=== PATIENT | male | born 1955 | race Caucasian/White ===

== ENCOUNTER → 2018-01-22 | Outpatient (CLI) | payer BC ==
--- NOTE | 2018-01-22 16:50 | Diagnostic Imaging Report ---
PROCEDURE: US carotid duplex, bilateral. TECHNIQUE: Multiple real-time grayscale images were obtained over the carotid arteries in various projections, bilaterally. Additional duplex Doppler and color Doppler images were also obtained. INDICATION: Carotid bruit. COMPARISON: None available. FINDINGS: Right carotid circulation: The right common carotid artery is normal in caliber, and there is no significant stenosis. Peak systolic velocity in the right common carotid artery is 81 cm/sec. There is calcified and noncalcified atherosclerotic plaque in the carotid bulb and proximal internal carotid artery, which results in up to 50% luminal narrowing by carr scale imaging. The peak systolic velocity in the proximal internal carotid artery is 134 cm/sec. Proximal aspect of the external carotid artery is patent with expected high resistance waveforms, and peak systolic velocity of 226 cm/sec. Left carotid circulation: The left common carotid artery is normal in caliber, and there is no significant stenosis. Peak systolic velocity in the left common carotid artery is 135 cm/sec. There is calcified atherosclerotic plaque in the carotid bulb and proximal internal carotid artery, which results in less than 50% luminal narrowing by carr scale imaging. The peak systolic velocity in the proximal internal carotid artery is 135 cm/sec. Proximal aspect of the external carotid artery is patent with expected high resistance waveforms, and peak systolic velocity of 116 cm/sec. Vertebral arteries: Flow in the bilateral vertebral arteries is antegrade. Elevated velocities are present in the left vertebral artery measuring up to 258 cm/s. IMPRESSION: 1. There is 50-69% stenosis of the bilateral proximal internal carotid arteries due to atherosclerotic plaquing. 2. Focal moderate to high-grade narrowing at the origin of the right external carotid artery due to atherosclerotic plaquing. 3. Patent bilateral vertebral arteries with antegrade flow. Potential focal stenosis in the proximal left vertebral artery. Parameters based on the consensus panel Carr-Scale and Doppler ultrasound criteria published February 2003, Radiology, Volume 229. DOPPLER (peak systolic velocity M/S Right Left CCA .81 1.35 ICA Proximal 1.34 1.35 ICA Mid 1.22 1.11 ICA Distal .86 1.17 RATIO 1.6 1.0 ECA 2.26 1.16 VERT .26 2.58 Dictated by: Dictated on workstation # [id number]
== END ==
LOC: RAD 14:45
PROVIDERS: ATTEND Family Medicine
DX: I65.23 Occlusion and stenosis of bilateral carotid arteries (principal)
CPT/HCPCS: 93880

== ENCOUNTER 2020-07-05 16:32 | Observation (INO) | payer BC, MEDICARE ==
[~2020-07-05] VITALS: Ht 180 cm; Wt 7.7 kg
--- NOTE | 2020-07-05 16:58 | Diagnostic Imaging Report ---
PROCEDURE: CT head wo r/o stroke. TECHNIQUE: Multiple contiguous axial images were obtained through the brain without the use of intravenous contrast. Auto Exposure Controls were utilized during the CT exam to meet ALARA standards for radiation dose reduction. INDICATION: Neuro deficit, weakness. COMPARISON: None available. FINDINGS: No intracranial hyperdense hemorrhage or space-occupying mass. No hydrocephalus or midline shift. No features of hyperdense vessel sign on either side. Mild periventricular white matter hypoattenuation is most compatible chronic microvascular ischemic disease. No features of large territorial infarct. No skull fracture. Paranasal sinuses and mastoid air cells are clear. IMPRESSION: 1. No intracranial hemorrhage or features of large territorial infarct. 2. Mild chronic microvascular ischemic disease and deep white matter. Dictated by: Dictated on workstation # [id number]
--- NOTE | 2020-07-05 17:00 | Diagnostic Imaging Report ---
CHEST 1 VIEW, AP/PA ONLY Indication: Stroke, neural deficits with weakness. Comparison: None available. Findings: No focal airspace disease in the visualized lungs. Please note that the posterior lower lobes are poorly evaluated by portable radiography. No pleural effusion or pneumothorax. Normal cardiomediastinal silhouette. Atherosclerotic aorta. Impression: 1. No acute cardiopulmonary process by portable radiography. Dictated by: Dictated on workstation # [id number]
[2020-07-05 17:04] LABS: BASOPHILS # (AUTO) 0.1 10^3/uL (0.0-0.1); BASOPHILS % (AUTO) 1 % (0-10); EOSINOPHILS # (AUTO) 0.3 10^3/uL (0.0-0.3); EOSINOPHILS % (AUTO) 3 % (0-10); HEMATOCRIT 40 % (40-54); HEMOGLOBIN 13.4 g/dL (13.3-17.7); LYMPHOCYTES # (AUTO) 1.2 10^3/uL (1.0-4.0); LYMPHOCYTES % (AUTO) 16 % (12-44); MEAN CORPUSCULAR HEMOGLOBIN 32 pg (25-34); MEAN CORPUSCULAR HGB CONC 34 g/dL (32-36); MEAN CORPUSCULAR VOLUME 93 fL (80-99); MONOCYTES # (AUTO) 0.9 10^3/uL (0.0-1.0); MONOCYTES % (AUTO) 12 % (0-12); NEUTROPHILS # (AUTO) 5.2 10^3/uL (1.8-7.8); NEUTROPHILS % (AUTO) 67 % (42-75); PLATELET COUNT 200 10^3/uL (130-400); WHITE BLOOD COUNT 7.7 10^3/uL (4.3-11.0)
--- NOTE | 2020-07-05 17:11 | ED Neurological Problem ---
General Chief Complaint: Neuro-Stroke Like Symptoms Stated Complaint: WEAKNESS/NAUSEA/VISION ISSUES FOR APPROX 30 MIN Nursing Triage Note: ARRIVED VIA AMB TO ROOM 05. AT APPX 1530 PT BECAME WEAK, NOT ABLE, TO WALK, DROOLING, AND VISION CHANGES THAT LASTED APPX 30 MINUES. PT THINKS SX HAS RESOLVED AT THIS TIME. Nursing Sepsis Screen: No Definite Risk Source: patient, family Exam Limitations: no limitations (GAYLE CASTREJON MD) History of Present Illness Date Seen by Provider: Jul 05, 2020 Time Seen by Provider: 16:35 Initial Comments Here with his who reports that he had acute onset of becoming weak and not able to walk or talk and was drooling that started at about 1530 but did seem to resolve after about 30 minutes. She brought him here for further evaluation. Does have history of coronary artery stents as well as leg stents and known vascular disease. He is on atorvastatin as well as Plavix and baby aspirin. He takes telmisartan for blood pressure. Follows with Dr. Palm as well as Dr. Tang in [place]. Patient states that he did have this episode but actually feels better now and pretty much normal. States he may feel slightly weaker but walked in under his own power. He is answering questions appropriately. Timing/Duration: 1 hour, waxing and waning Severity: moderate Associated Symptoms: confusion; No nausea/vomiting; slurred speech, trouble walking, weakness (GAYLE CASTREJON MD) Allergies and Home Medications Allergies Coded Allergies: No Known Drug Allergies (Unverified , 07/05/20) Patient Home Medication List Home Medication List Reviewed: Yes (GAYLE CASTREJON MD) Review of Systems Review of Systems Constitutional: see HPI; No chills, No fever Eyes: Decreased Acuity; Denies Pain; Vision Changes Ears, Nose, Mouth, Throat: no symptoms reported Respiratory: No cough, No short of breath Cardiovascular: No chest pain, No palpitations Gastrointestinal: No abdominal pain, No nausea, No vomiting Genitourinary: no symptoms reported Musculoskeletal: No muscle pain; muscle weakness Skin: no symptoms reported Psychiatric/Neurological: See HPI Endocrine: No Symptoms Reported (GAYLE CASTREJON MD) All Other Systems Reviewed Negative Unless Noted: Yes (GAYLE CASTREJON MD) Past Csnyynm-Cmomiq-Crnybd Hx Past Med/Social Hx: Reviewed Nursing Past Med/Soc Hx (GAYLE CASTREJON MD) Patient Social History Alcohol Use: Denies Use Smoking Status: Former Smoker Recent Infectious Disease Expo: No Recent Hopitalizations: No (GAYLE CASTREJON MD) Seasonal Allergies Seasonal Allergies: No (GAYLE CASTREJON MD) Past Medical History Surgeries: Yes (cardiac stents) Coronary Stent Respiratory: No Cardiac: Yes Heart Attack, High Cholesterol, Hypertension Neurological: No Genitourinary: No Gastrointestinal: No Musculoskeletal: Yes Arthritis Endocrine: No HEENT: No Cancer: No Psychosocial: No (GAYLE CASTREJON MD) Family Medical History Reviewed Nursing Family Hx (GAYLE CASTREJON MD) No Pertinent Family Hx (GAYLE CASTREJON MD) Physical Exam Vital Signs Vital Signs - First Documented 07/05/20 16:32 Pulse 76 Resp 16 B/P (MAP) 189/87 (121) Pulse Ox 100 O2 Delivery Room Air (AMAN BLOOD MD) Vital Signs Capillary Refill : Less Than 3 Seconds (GAYLE CASTREJON MD) Height, Weight, BMI Height: '" Weight: lbs. oz. kg; 23.00 BMI Method: General Appearance: WD/WN, no apparent distress HEENT: PERRL/EOMI, pharynx normal Neck: full range of motion, supple Respiratory: lungs clear, normal breath sounds Cardiovascular: regular rate, rhythm, no murmur Gastrointestinal: non tender, soft Back: normal inspection, no CVA tenderness, no vertebral tenderness Extremities: normal range of motion, non-tender, normal inspection, no pedal edema, no calf tenderness Neurologic/Psychiatric: vessel traffic officer II-XII nml as tested, no motor/sensory deficits, alert, normal mood/affect, oriented x 3 Crainal Nerves: normal hearing, normal speech, PERRL Coordination/Gait: normal finger to nose, normal gait Motor/Sensory: no motor deficit, no sensory deficit, no pronator drift Skin: normal color, warm/dry (GAYLE CASTREJON MD) Stroke NIH Stroke Scale Assessment Level of Consciousness: 0=Alert (0), Level of Consciousness-Questions: 0=Answers both month/age (0), LOC Commands: 0=Performs both tasks (0), Visual Shea: 0=No visual loss (0), Facial Movement (Facial Paresis): 0=Normal symmetrical mnt (0), Motor Function-Arms Right: 0=No drift (0), Motor Function-Arms Left: 0=No drift (0), Motor Function-Legs Right: 0=No drift (0), Motor Function-Legs Left: 0=No drift (0), Limb Ataxia: 0=Absent (0), Sensory: 0=Normal:no loss (0), Best Language: 0=No aphasia (0), Dysarthria: 0=Normal (0), Extinction & Inattention: 0=No abnormality (0), Total: Progress/Results/Core Measures Results/Orders Lab Results Laboratory Tests Test 07/05/20 16:55 07/05/20 16:56 07/05/20 17:12 Range/Units White Blood Count 7.7 4.3-11.0 10^3/uL Red Blood Count 4.24 L 4.30-5.52 10^6/uL Hemoglobin 13.4 13.3-17.7 g/dL Hematocrit 40 40-54 % Mean Corpuscular Volume 93 80-99 fL Mean Corpuscular Hemoglobin 32 25-34 pg Mean Corpuscular Hemoglobin Concent 34 32-36 g/dL Red Cell Distribution Width 12.3 10.0-14.5 % Platelet Count 200 130-400 10^3/uL Mean Platelet Volume 10.0 9.0-12.2 fL Immature Granulocyte % (Auto) 0 % Neutrophils (%) (Auto) 67 42-75 % Lymphocytes (%) (Auto) 16 12-44 % Monocytes (%) (Auto) 12 0-12 % Eosinophils (%) (Auto) 3 0-10 % Basophils (%) (Auto) 1 0-10 % Neutrophils # (Auto) 5.2 1.8-7.8 10^3/uL Lymphocytes # (Auto) 1.2 1.0-4.0 10^3/uL Monocytes # (Auto) 0.9 0.0-1.0 10^3/uL Eosinophils # (Auto) 0.3 0.0-0.3 10^3/uL Basophils # (Auto) 0.1 0.0-0.1 10^3/uL Immature Granulocyte # (Auto) 0.0 0.0-0.1 10^3/uL Prothrombin Time 14.4 12.2-14.7 SEC INR Comment 1.1 0.8-1.4 Activated Partial Thromboplast Time 26 24-35 SEC D-Dimer 0.26 0.00-0.49 UG/ML Sodium Level 126 L 135-145 MMOL/L Potassium Level 3.7 3.6-5.0 MMOL/L Chloride Level 94 L 98-107 MMOL/L Carbon Dioxide Level 24 21-32 MMOL/L Anion Gap 8 5-14 MMOL/L Blood Urea Nitrogen 10 7-18 MG/DL Creatinine 0.76 0.60-1.30 MG/DL Estimat Glomerular Filtration Rate > 60 BUN/Creatinine Ratio 13 Glucose Level 85 70-105 MG/DL Calcium Level 9.0 8.5-10.1 MG/DL Corrected Calcium 8.8 8.5-10.1 MG/DL Total Bilirubin 1.0 0.1-1.0 MG/DL Aspartate Amino Transf (AST/SGOT) 25 5-34 U/L Alanine Aminotransferase (ALT/SGPT) 30 0-55 U/L Alkaline Phosphatase 54 40-136 U/L Troponin I < 0.028 <0.028 NG/ML Total Protein 6.3 L 6.4-8.2 GM/DL Albumin 4.3 3.2-4.5 GM/DL Glucometer 85 70-110 MG/DL Urine Color MCKENZIE H Urine Clarity CLEAR Urine pH 6.5 5-9 Urine Specific [place] 1.020 1.016-1.022 Urine Protein NEGATIVE NEGATIVE Urine Glucose (UA) NEGATIVE NEGATIVE Urine Ketones NEGATIVE NEGATIVE Urine Nitrite NEGATIVE NEGATIVE Urine Bilirubin NEGATIVE NEGATIVE Urine Urobilinogen 0.2 < = 1.0 MG/DL Urine Leukocyte Esterase NEGATIVE NEGATIVE Urine RBC (Auto) NEGATIVE NEGATIVE Urine RBC NONE /HPF Urine WBC 0-2 /HPF Urine Squamous Epithelial Cells NONE /HPF Urine Crystals NONE /LPF Urine Bacteria TRACE /HPF Urine Casts NONE /LPF Urine Mucus NEGATIVE /LPF Urine Culture Indicated NO (AMAN BLOOD MD) My Orders Orders - AMAN BLOOD MD Metoprolol Tartrate Injection (Lopressor (07/05/20 19:45) (AMAN BLOOD MD) Medications Given in ED Current Medications Medications Dose Ordered Sig/Jose Route Start Time Stop Time Status Last Admin Dose Admin Iohexol 100 ml ONCE ONCE IV 07/05/20 18:15 07/05/20 18:16 DC 07/05/20 18:11 75 ML Metoprolol Tartrate 5 mg ONCE ONCE IV 07/05/20 19:45 07/05/20 19:46 DC 07/05/20 19:51 5 MG Sodium Chloride 10 ml NEEDED PRN IV 07/05/20 18:15 07/05/20 18:11 10 ML Sodium Chloride 100 ml ONCE ONCE IV 07/05/20 18:15 07/05/20 18:16 DC 07/05/20 18:11 80 ML Sodium Chloride 1,000 ml @ 0 mls/hr Q0M ONCE IV 07/05/20 17:30 07/05/20 17:31 DC 07/05/20 17:45 1,000 MLS/HR (AMAN BLOOD MD) Vital Signs/I&O 07/05/20 07/05/20 16:32 19:22 Pulse 76 67 Resp 16 16 B/P (MAP) 189/87 (121) 210/96 Pulse Ox 100 100 O2 Delivery Room Air (AMAN BLOOD MD) Blood Pressure Mean: 121 FSBG Bedside Testing Finger Stick Blood Glucose: 85 (GAYLE CASTREJON MD) Progress Progress Note : Progress Note Seen and evaluated. Stroke activation initiated on arrival. Initial stroke scale zero and patient and family states that he is currently resolved. No indication for TPA currently given no significant stroke findings. Stroke order set initiated and patient rapidly to CT scan. Reevaluated after CT scan and still resolved with respect to symptoms. Anticipate CT angiogram head and neck after chemistries complete. Monitor patient. 1726: CT angiogram head and neck ordered. Remains resolved. Ultrasound results from previous carotid study and vertebral study do show stenosis at 50 to 69%. We will see what the CT scan shows. Normal saline [address] ordered. Monitor patient. (GAYLE CASTREJON MD) Progress Note : Time: 20:11 Progress Note I assumed care of this patient from Dr. Castrejon at shift change. We reviewed the objective findings and clinical history. CT angiogram has now been read and reviewed. There were no large vessel occlusions. He does have significant stenosis of the internal carotid arteries bilaterally. This was discussed with Dr. Bridges, stroke neurologist at [facility]. She is recommending admission overnight for observation and blood pressure control. Because symptoms were not lateralizing and general in nature and have resolved, she did not believe this episode represents a vascular emergency requiring transfer to an interventional center. She recommends outpatient referral to a vascular team. I have recommended the patient arrange this through his mercerizing range controller, Dr. Tang at [place]. Patient and have a strong preference to keep his cardiovascular care with the same team. I have reexamined the patient and have found no focal deficits. He feels normal in motor, sensory, speech, cognitive, and ambulatory functions. His confirms he is back to baseline. Case has been reviewed with Dr. Freitas. Systolic blood pressures have exceeded 200 in the ER, and he recommends a trial of Lopressor 5 mg IV. If Lopressor is not sufficient in controlling his blood pressure, he recommends adding an additional telmisartan 40 mg p.o. Lopresser was administered and he has responded nicely with a systolic blood pressure of [address] Otto recommended a target blood pressure of 160-180 systolic. I discussed CODE STATUS with the patient, and he elects full CODE STATUS but does not desire prolonged life supporting measures. His is aware of his desires. Patient is strict about taking his home medications at 07:00 in the morning. I have written his medications accordingly on the admission bridging orders. (AMAN BLOOD MD) Initial ECG Impression Date: Jul 05, 2020 Initial ECG Impression Time: 17:02 Initial ECG Rate: 71 Initial ECG Rhythm: Normal Sinus Comment Sinus rhythm with normal axis. No evidence of ST elevation NC. No previous available for comparison. Interpreted by me. (GAYLE CASTREJON MD) Diagnostic Imaging Diagonstic Imaging: CT Plain Films/CT/US/NM/MRI: head Comments [facility] [place], [place] NAME: JUNIE SANCHEZ [facility] REC#: [id number] PT STATUS: REG ER : 1955 PHYSICIAN: GAYLE CASTREJON MD ADMIT DATE: 07/05/20/ER Signed Date of Exam:07/05/20 CT HEAD WO-R/O STROKE PROCEDURE: CT head wo r/o stroke. TECHNIQUE: Multiple contiguous axial images were obtained through the brain without the use of intravenous contrast. Auto Exposure Controls were utilized during the CT exam to meet ALARA standards for radiation dose reduction. INDICATION: Neuro deficit, weakness. COMPARISON: None available. FINDINGS: No intracranial hyperdense hemorrhage or space-occupying mass. No hydrocephalus or midline shift. No features of hyperdense vessel sign on either side. Mild periventricular white matter hypoattenuation is most compatible chronic microvascular ischemic disease. No features of large territorial infarct. No skull fracture. Paranasal sinuses and mastoid air cells are clear. IMPRESSION: 1. No intracranial hemorrhage or features of large territorial infarct. 2. Mild chronic microvascular ischemic disease and deep white matter. Dictated by: Dictated on workstation # [id number] Dict: 07/05/201654 Trans: 07/05/201656 [facility] [id number] Interpreted by: JARRETT ROTH MD Electronically signed by: JARRETT ROTH MD 07/05/201656 Diagonstic Imaging: Xray Plain Films/CT/US/NM/MRI: chest Comments [facility] [place] NAME: JUNIE SANCHEZ [facility] REC#: [id number] PT STATUS: REG ER : 1955 PHYSICIAN: GAYLE CASTREJON MD ADMIT DATE: 07/05/20/ER Signed Date of Exam:07/05/20 CHEST 1 VIEW, AP/PA ONLY CHEST 1 VIEW, AP/PA ONLY Indication: Stroke, neural deficits with weakness. Comparison: None available. Findings: No focal airspace disease in the visualized lungs. Please note that the posterior lower lobes are poorly evaluated by portable radiography. No pleural effusion or pneumothorax. Normal cardiomediastinal silhouette. Atherosclerotic aorta. Impression: 1. No acute cardiopulmonary process by portable radiography. Dictated by: Dictated on workstation # [id number] Dict: 07/05/209 Trans: 07/05/201658 [facility] [id number] Interpreted by: JARRETT ROTH MD Electronically signed by: JARRETT ROTH MD 07/05/201658 (GAYLE CASTREJON MD) Diagonstic Imaging: CT Plain Films/CT/US/NM/MRI: other (Angiogram head and neck) Comments CT angiogram head and neck viewed by me and report reviewed. See report below: NAME: JUNIE SANCHEZ [facility] REC#: [id number] PT STATUS: REG ER : 1955 PHYSICIAN: GAYLE CASTREJON MD ADMIT DATE: 07/05/20/ER Signed Date of Exam:07/05/20 CT ANGIO HEAD/NECK Procedure: CT angiography of the head and CT angiography of the neck with and without contrast. Technique: Contiguous noncontrast images were obtained from the skull base through the vertex. After intravenous contrast administration, helical CT angiography of the neck was performed. Source data was reformatted into 3D MIP projections. Delayed post contrast acquisition was also obtained. Auto Exposure Controls were utilized during the CT exam to meet ALARA standards for radiation dose reduction. Date: July 05, 2020. Indication: 64-year-old male, stroke. Weakness. Comparison: CT head without contrast January 05, 2021. Findings: The left common carotid artery is patent. There is prominent calcified plaque at the left carotid bifurcation and the proximal segment of the left internal carotid artery. There is approximately 85% narrowing of the proximal aspect of the left internal carotid artery. There are calcifications of the cavernous segment of the left internal carotid artery. The left middle cerebral artery is patent. The left anterior cerebral artery is patent. The right anterior cerebral artery is patent. There is a patent anterior communicating artery. The right middle cerebral artery is patent. There are calcifications of the cavernous segment of the right internal carotid artery. There is prominent calcified plaque involving the proximal segment of the right internal carotid artery with approximately 90% narrowing of the proximal right internal carotid artery. There is calcified plaque at the right carotid bifurcation. The right common carotid artery is patent. There is conventional origin of the left vertebral artery. The left vertebral artery is patent. The basilar artery is patent. The right and left posterior cerebral arteries are patent. The left posterior cerebral artery is supplied via predominantly a patent left posterior communicating artery. The bilateral posterior inferior cerebellar arteries are patent. The right vertebral artery is patent and conventional in origin. There are small calcified pulmonary nodules and calcified hilar and mediastinal lymph nodes consistent with the sequela of prior granulomatous disease. There are motion limitations of the study. There are degenerative changes of the spine. There is no identified acute bony abnormality. Impression: 1. High-grade stenosis involving both proximal segments of the internal carotid arteries. 2. No identified arterial head large vessel occlusion. 3. No identified dissection or aneurysm. Dictated by: Dictated on workstation # [id number] Dict: 07/05/20 1827 Trans: 07/05/201904 [facility] [id number] Interpreted by: PABLO THORNTON MD Electronically signed by: PABLO THORNTON MD 07/05/201904 (AMAN BLOOD MD) Departure Communication (Admissions) Time/Spoke to Admitting Phy: 19:50 Dr. Mosqueda on behalf of of Tristin Palm. Time/Spoke to Consulting Phy: 19:40 Dr. Fretias (AMAN BLOOD MD) Impression Primary Impression: Episode of generalized weakness Additional Impressions: Aphasia Hypertensive urgency Internal carotid artery stenosis Qualified Codes: I65.23 - Occlusion and stenosis of bilateral carotid arteries Disposition: ADMITTED INPATIENT Condition: Improved Admissions Decision to Admit Reason: Admit from ER (General) Decision to Admit/Date: Jul 05, 2020 Time/Decision to Admit Time: 18:00 (AMAN BLOOD MD) Departure-Patient Inst. Referrals: TRISTIN PALM MD (PCP/Family) Primary Care Physician Copy Copies To 1: TRISTIN PALM MD, TIMOTHY D MD Jul 05, 2020 17:11 AMAN BLOOD MD Jul 05, 2020 20:17
[2020-07-05 17:14] LABS: ALBUMIN 4.3 GM/DL (3.2-4.5); CHLORIDE 94 MMOL/L (98-107); POTASSIUM 3.7 MMOL/L (3.6-5.0); SODIUM 126 MMOL/L (135-145)
[2020-07-05 17:16] LABS: GLUCOSE 85 MG/DL (70-105); TOTAL PROTEIN 6.3 GM/DL (6.4-8.2)
[2020-07-05 17:17] LABS: BILIRUBIN,URINE NEGATIVE (NEGATIVE); CLARITY,URINE CLEAR; COLOR,URINE AMBER; GLUCOSE, URINE (UA) NEGATIVE (NEGATIVE); KETONES,URINE NEGATIVE (NEGATIVE); LEUKOCYTE ESTERASE ,URINE NEGATIVE (NEGATIVE); NITRITE,URINE NEGATIVE (NEGATIVE); PH,URINE 6.5 (5-9); PROTEIN,URINE NEGATIVE (NEGATIVE)
[2020-07-05 17:17] LABS: CARBON DIOXIDE 24 MMOL/L (21-32)
[2020-07-05 17:20] LABS: ALKALINE PHOSPHATASE 54 U/L (40-136); CREATININE SERUM 0.76 MG/DL (0.60-1.30); GFR ESTIMATED > 60
[2020-07-05 17:21] LABS: BUN/CREATININE RATIO 13
[2020-07-05 17:22] LABS: FIBRIN DEGRADATION PRODUCTS 0.26 UG/ML (0.00-0.49); INR 1.1 (0.8-1.4); PROTHROMBIN TIME PATIENT 14.4 SEC (12.2-14.7)
[2020-07-05 17:23] LABS: ALANINE AMINOTRANSFERASE 30 U/L (0-55)
[2020-07-05 17:26] LABS: BACTERIA,URINE TRACE /HPF; WBC,URINE 0-2 /HPF
[2020-07-05] MEDS ORDERED: NS IV 1000 ML 1,000 ML IV ONE (17:30)
[2020-07-05] MEDS ORDERED: HOLD METFORMIN - RECEIVED CONTRAST 20 ML VIAL IV SCH (18:15)
[2020-07-05] MEDS ORDERED: CATHETER FLUSH 10 ML SYR IV PRN (18:15)
[2020-07-05] MEDS ORDERED: NS 100 ML (IVPB) BAG IV ONE (18:15)
[2020-07-05] MEDS ORDERED: IOHEXOL 350 MG/ML 100 ML (OMNIPAQUE 350) VIAL IV ONE (18:15)
--- NOTE | 2020-07-05 18:35 | Diagnostic Imaging Report ---
Procedure: CT angiography of the head and CT angiography of the neck with and without contrast. Technique: Contiguous noncontrast images were obtained from the skull base through the vertex. After intravenous contrast administration, helical CT angiography of the neck was performed. Source data was reformatted into 3D MIP projections. Delayed post contrast acquisition was also obtained. Auto Exposure Controls were utilized during the CT exam to meet ALARA standards for radiation dose reduction. Date: July 05, 2020. Indication: 64-year-old male, stroke. Weakness. Comparison: CT head without contrast January 05, 2021. Findings: The left common carotid artery is patent. There is prominent calcified plaque at the left carotid bifurcation and the proximal segment of the left internal carotid artery. There is approximately 85% narrowing of the proximal aspect of the left internal carotid artery. There are calcifications of the cavernous segment of the left internal carotid artery. The left middle cerebral artery is patent. The left anterior cerebral artery is patent. The right anterior cerebral artery is patent. There is a patent anterior communicating artery. The right middle cerebral artery is patent. There are calcifications of the cavernous segment of the right internal carotid artery. There is prominent calcified plaque involving the proximal segment of the right internal carotid artery with approximately 90% narrowing of the proximal right internal carotid artery. There is calcified plaque at the right carotid bifurcation. The right common carotid artery is patent. There is conventional origin of the left vertebral artery. The left vertebral artery is patent. The basilar artery is patent. The right and left posterior cerebral arteries are patent. The left posterior cerebral artery is supplied via predominantly a patent left posterior communicating artery. The bilateral posterior inferior cerebellar arteries are patent. The right vertebral artery is patent and conventional in origin. There are small calcified pulmonary nodules and calcified hilar and mediastinal lymph nodes consistent with the sequela of prior granulomatous disease. There are motion limitations of the study. There are degenerative changes of the spine. There is no identified acute bony abnormality. Impression: 1. High-grade stenosis involving both proximal segments of the internal carotid arteries. 2. No identified arterial head large vessel occlusion. 3. No identified dissection or aneurysm. Dictated by: Dictated on workstation # [id number]
[2020-07-05 19:22] VITALS: BP 210/96
[2020-07-05] MEDS ORDERED: meTOprolol 5 MG/5 ML (LOPRESSOR) VIAL IV ONE (19:45)
[2020-07-05] MEDS ORDERED: meTOprolol 5 MG/5 ML (LOPRESSOR) VIAL IV PRN (21:15)
[2020-07-05 21:18] VITALS: BP 204/94
[2020-07-05 21:56] VITALS: BP 193/74
[2020-07-05 22:30] VITALS: BP 167/71
[2020-07-05 22:58] VITALS: BP 155/74
[2020-07-06 00:01] VITALS: BP 148/86
[2020-07-06 01:18] VITALS: BP 160/76
[2020-07-06 02:12] VITALS: BP 159/85
[2020-07-06 03:23] VITALS: BP 160/80
[2020-07-06 03:37] LABS: CHOLESTEROL 143 MG/DL (< 200); HDL CHOLESTEROL 63 MG/DL (40-60); TRIGLYCERIDES 47 MG/DL (<150); VLDL CHOLESTEROL 9 MG/DL (5-40)
[2020-07-06 03:59] VITALS: BP 165/74
[2020-07-06] MEDS ORDERED: meTOprolol 5 MG/5 ML (LOPRESSOR) VIAL IV PRN (07:00)
[2020-07-06] MEDS: CLOPIDOGREL 75 MG (PLAVIX) TABLET PO SCH ×2 (07:01→07:30)
[2020-07-06] MEDS: ASPIRIN 81 MG CHEW (CHILDREN'S ASA) PO SCH ×2 (07:01→07:30)
[2020-07-06] MEDS: LOSARTAN 50 MG (COZAAR) TAB PO SCH ×2 (07:01→07:30)
[2020-07-06 10:16] VITALS: BP 140/79
[2020-07-06] MEDS ORDERED: ASPI-1238 PO (11:01)
[2020-07-06] MEDS ORDERED: ATOR80TA76 PO (11:01)
[2020-07-06] MEDS ORDERED: TELM40TA6 PO (11:01)
[2020-07-06] MEDS ORDERED: CHOL10007 PO (11:01)
[2020-07-06] MEDS ORDERED: CLOP75TA28 PO (11:01)
[2020-07-06] MEDS ORDERED: VITA400C60 PO (11:01)
--- NOTE | 2020-07-06 11:28 | Discharge Summary ---
Discharge Summary Hospital Course Was the Problem List Reviewed?: Yes Hospital Course Date of Admission: Jul 05, 2020 at 20:31 Admission Diagnosis : Family Physician/Provider: Tristin Palm MD Date of Discharge: 07/06/20 Discharge Diagnosis: [ ] Hospital Course: See H/P same day 07/06/20 Labs and Pending Lab Test: Laboratory Tests 07/05/20 16:55: White Blood Count 7.7, Red Blood Count 4.24L, Hemoglobin 13.4, Hematocrit 40, Mean Corpuscular Volume 93, Mean Corpuscular Hemoglobin 32, Mean Corpuscular Hemoglobin Concent 34, Red Cell Distribution Width 12.3, Platelet Count 200, Mean Platelet Volume 10.0, Immature Granulocyte % (Auto) 0, Neutrophils (%) (Auto) 67, Lymphocytes (%) (Auto) 16, Monocytes (%) (Auto) 12, Eosinophils (%) (Auto) 3, Basophils (%) (Auto) 1, Neutrophils # (Auto) 5.2, Lymphocytes # (Auto) 1.2, Monocytes # (Auto) 0.9, Eosinophils # (Auto) 0.3, Basophils # (Auto) 0.1, Immature Granulocyte # (Auto) 0.0, Prothrombin Time 14.4, INR Comment 1.1, Activated Partial Thromboplast Time 26, D-Dimer 0.26, Sodium Level 126L, Potassium Level 3.7, Chloride Level 94L, Carbon Dioxide Level 24, Anion Gap 8, Blood Urea Nitrogen 10, Creatinine 0.76, Estimat Glomerular Filtration Rate > 60, BUN/Creatinine Ratio 13, Glucose Level 85, Calcium Level 9.0, Corrected Calcium 8.8, Total Bilirubin 1.0, Aspartate Amino Transf (AST/SGOT) 25, Alanine Aminotransferase (ALT/SGPT) 30, Alkaline Phosphatase 54, Troponin I < 0.028, Total Protein 6.3L, Albumin 4.3 07/05/20 16:56: Glucometer 85 07/05/20 17:12: Urine Color AMBERH, Urine Clarity CLEAR, Urine pH 6.5, Urine Specific [place] 1.020, Urine Protein NEGATIVE, Urine Glucose (UA) NEGATIVE, Urine Ketones NEGATIVE, Urine Nitrite NEGATIVE, Urine Bilirubin NEGATIVE, Urine Urobilinogen 0.2, Urine Leukocyte Esterase NEGATIVE, Urine RBC (Auto) NEGATIVE, Urine RBC NONE, Urine WBC 0-2, Urine Squamous Epithelial Cells NONE, Urine Crystals NONE, Urine Bacteria TRACE, Urine Casts NONE, Urine Mucus NEGATIVE, Urine Culture Indicated NO 07/06/20 03:10: Triglycerides Level 47, Cholesterol Level 143, LDL Cholesterol Direct 58, VLDL Cholesterol 9, HDL Cholesterol 63H Home Meds Active Reported Aspirin EC (Aspirin) 81 Mg Tablet.dr 81 Mg PO DAILY Vitamin D3 (Cholecalciferol (Vitamin D3)) 25 Mcg Capsule 25 Mcg PO DAILY Vitamin E (Vitamin E Acetate) 400 Unit Capsule 400 Unit PO DAILY Atorvastatin Calcium 80 Mg Tablet 80 Mg PO DAILY Clopidogrel (Clopidogrel Bisulfate) 75 Mg Tablet 75 Mg PO DAILY Telmisartan 40 Mg Tablet 40 Mg PO DAILY Assessment/Pt Instructions Follow up with tour coordinator for referral for intervention on his R/L carotid stenosis. Discharge Planning: <30 minutes discharge planning Discharge Instructions Discharge Diet: Cardiac Diet Activity as Tolerated: Yes Discharge Physical Examination Vital Signs Vital Signs Date Time Temp Pulse Resp B/P (MAP) Pulse Ox O2 Delivery O2 Flow Rate FiO2 07/06/20 10:16 36.5 69 25 140/79 (99) 94 Room Air Allergies: Coded Allergies: No Known Drug Allergies (Unverified , 07/05/20) Discharge Summary Date of Admission Jul 05, 2020 at 20:31 Date of Discharge TRISTIN PALM MD Jul 06, 2020 11:28
--- NOTE | 2020-07-06 11:31 | History & Physical ---
History of Present Illness History of Present Illness Reason for visit/HPI 64 yo M admitted for generalized weakness, nausea and not feeling well- it lasted 30 minutes and actual was nearly resolved before being seen in ER. His blood pressure was elevated and decision was made to monitor overnight. Of note CTA head was negative for bleed, aneurysm but was positive for carotid stenosis of 85-95% bilaterally. Review of records he had an ultrasound of carotids in 2018 showing 50-69% stenosis due to plaque. Patient had no overnight events and he reports feeling back to baseline. He would like to wait to get his carotids evaluated/surgery until he retires from [employer] this Fall. Pt denies chest pain, trouble breathing. He did have cardiac and leg stents last year. Date of Admission Jul 05, 2020 at 20:31 Date Seen by a Provider: Jul 06, 2020 Time Seen by a Provider: 08:30 I consulted on this patient on 07/06/20 11:28 Attending Physician Tristin Palm MD Admitting Physician Tristin Palm MD Consult Allergies and Home Medications Allergies Coded Allergies: No Known Drug Allergies (Unverified , 07/05/20) Home Medications Aspirin 81 Mg Tablet.dr, 81 MG PO DAILY, (Reported) Atorvastatin Calcium 80 Mg Tablet, 80 MG PO DAILY, (Reported) Cholecalciferol (Vitamin D3) 25 Mcg Capsule, 25 MCG PO DAILY, (Reported) Clopidogrel Bisulfate 75 Mg Tablet, 75 MG PO DAILY, (Reported) Telmisartan 40 Mg Tablet, 40 MG PO DAILY, (Reported) Vitamin E Acetate 400 Unit Capsule, 400 UNIT PO DAILY, (Reported) Patient Home Medication List Home Medication List Reviewed: Yes Past Odvxwzy-Iblfkl-Xaknxl Hx Patient Social History Marrital Status: Smoking Status: Former Smoker Recent Hopitalizations: No Immunizations Up To Date Date of Influenza Vaccine: Jan 23, 2020 Seasonal Allergies Seasonal Allergies: No Surgeries Yes (cardiac stents) Coronary Stent Respiratory No Cardiovascular Yes Heart Attack, High Cholesterol, Hypertension Neurological No Genitourinary No Gastrointestinal No Musculoskeletal Yes Arthritis Endocrine History of Endocrine Disorders: No HEENT History of HEENT Disorders: No Cancer No Psychosocial History of Psychiatric Problem: No Family Medical History Significant Family History: No Pertinent Family Hx Review of Systems Review of Systems General: No Chills; Fatigue Pulmonary: No Dyspnea Cardiovascular: No: Chest Pain, Orthopnea Gastrointestinal: Nausea Genitourinary: No Dysuria Musculoskeletal: No: other Neurological: Weakness All Other Systems Reviewed All Other Systems Reviewed: Yes Physical Exam Vital Signs Vital Signs - First Documented 07/05/20 07/05/20 16:32 21:18 Temp 36.8 Pulse 76 Resp 16 B/P (MAP) 189/87 (121) Pulse Ox 100 O2 Delivery Room Air Capillary Refill : Less Than 3 Seconds Height, Weight, BMI Height: '" Weight: lbs. oz. kg; 23.76 BMI Method: General Appearance: No Apparent Distress, WD/WN Eyes: Bilateral Eye Normal Inspection HEENT: PERRL/EOMI Neck: Full Range of Motion, Non Tender, Supple Respiratory: Chest Non Tender, Lungs Clear Cardiovascular: Regular Rate, Rhythm Gastrointestinal: Non Tender, Soft Rectal: Deferred Back: No CVA Tenderness Extremity: Normal Range of Motion, Non Tender Neurologic/Psychiatric: Alert Assessment/Plan Assessment/Plan Admission Dx stroke CAD PAD Admission Status: Observation Assessment and Plan 64 yo M admitted for generalized weakness, nausea and not feeling well- it lasted 30 minutes and actual was nearly resolved before being seen in ER. His blood pressure was elevated and decision was made to monitor overnight. Of note CTA head was negative for bleed, aneurysm but was positive for carotid stenosis of 85-95% bilaterally. Review of records he had an ultrasound of carotids in 2018 showing 50-69% stenosis due to plaque. Patient had no overnight events and he reports feeling back to baseline. He would like to wait to get his carotids evaluated/surgery until he retires from [employer] [facility] this Fall. Pt denies chest pain, trouble breathing. He did have cardiac and leg stents last year so he has the risk factors for recurrent CAD. Problems: (1) CAD (coronary artery disease) (2) Hyponatremia (3) Internal carotid artery stenosis Qualifiers: Qualified Codes: I65.23 - Occlusion and stenosis of bilateral carotid arteries (4) Episode of generalized weakness TRISTIN PALM MD Jul 06, 2020 11:30
== END 2020-07-06 12:50 | disposition home or self-care (01) ==
LOC: EDUNIT# 16:32 → ER 16:34 → CSD 20:31
PROVIDERS: ADMIT Family Medicine; ATTEND Family Medicine
DX: R53.1 Weakness (principal); R47.01 Aphasia; I16.0 Hypertensive urgency; I65.23 Occlusion and stenosis of bilateral carotid arteries; I10 Essential (primary) hypertension; E78.00 Pure hypercholesterolemia, unspecified; M19.90 Unspecified osteoarthritis, unspecified site; I25.10 Atherosclerotic heart disease of native coronary artery without angina pectoris; E87.1 Hypo-osmolality and hyponatremia; Z79.82 Long term (current) use of aspirin; Z79.899 Other long term (current) drug therapy; Z95.5 Presence of coronary angioplasty implant and graft; Z86.73 Personal history of transient ischemic attack (TIA), and cerebral infarction without residual deficits; Z87.891 Personal history of nicotine dependence
CPT/HCPCS: 70450; 70496; 70498; 71045; 80053; 80061; 81000; 82962; 84484; 85025; 85379; 85610; 85730; 93005; 93041; 99284; G0378; 36415

== ENCOUNTER 2021-10-14 06:57 | Inpatient (IN) | payer MEDICARE, OTHER ==
[~2021-10-14] VITALS: Ht 180 cm; Wt 75.6 kg
[~2021-10-14 06:57] MED LIST: ASPI-1238 PO; ATOR80TA76 PO; CHOL10007 PO; CLOP75TA28 PO; TELM40TA6 PO; VITA400C60 PO
--- NOTE | 2021-10-14 07:14 | ED Abdominal Pain ---
General Stated Complaint: WEAKNESS Source of Information: Patient Exam Limitations: No Limitations History of Present Illness Date Seen by Provider: Oct 14, 2021 Time Seen by Provider: 07:00 Initial Comments Patient is a 66-year-old male who presents to the emergency department by ambulance this morning with a chief complaint of epigastric abdominal pain, nausea vomiting, cold sweats. Patient states about an hour and a half ago he was sitting trying to eat something at his table and had a sudden onset of symptoms. Patient states the pain radiates from mid abdomen up into his chest. He states he has not taken anything for the pain. He was given 4 mg of Zofran per EMS prior to arrival and started on IV fluids. He thinks he may have had pain similar to this in the past but cannot recall what caused it. He has an extensive history of coronary artery and peripheral vascular disease. His operator maintainer is Dr. Enrique aTng at [place] in [facility]. Primary care is Dr. Tristin Palm. Patient denies being a diabetic, he states he does not smoke. He states his last bowel movement was 2 days ago which is unusual for him, nonblack nonbloody. He has a history of ulcers, cannot take aspirin but is on Plavix. Denies recent illness such as fevers, chills, URI symptoms, cough or shortness of breath. All other review of systems reviewed and negative except as stated. [id number] Patient's showed up and presented some new information. She states that he was recently started on Zoloft about 2 weeks ago. 3 days into this course he develops the abdominal pain nausea and vomiting. She states that he quit taking the Zoloft about 3 days ago now. She states that he was placed on some Vistaril. He has been drinking "lots and lots of water". He has always been a heavy water drinker but it seems he is drinking more in recent days. She states this morning prior to ambulance arrival he had an episode where he bent forward and his arms stiffened and he became poorly responsive. It does not sound like he actually lost consciousness. But he showed up and had upper extremity "stiffness". She states it took the ambulance about 15 minutes to arrive and by the time they got there he was more responsive. She thinks this may have been a seizure. He is on amlodipine and telmisartan and Plavix. Also the Vistaril. She brought these pills with her. Timing/Duration: 1-3 Hours Severity/Quality: Severe, Aching Location: Epigastric Radiation: Chest Activities at Onset: None Associated Symptoms: Nausea/Vomiting, Weakness Allergies and Home Medications Allergies Coded Allergies: No Known Drug Allergies (Unverified , 07/05/20) Patient Home Medication List Home Medication List Reviewed: Yes Amlodipine Besylate (Amlodipine Besylate) 10 Mg Tablet, 10 MG PO DAILY, (Reporte d) Entered as Reported by: LENNY MCARTHUR on 10/14/211507 Last Action: Continued Atorvastatin Calcium (Atorvastatin Calcium) 80 Mg Tablet, 80 MG PO DAILY, (Reported) Entered as Reported by: LENNY MCARTHUR on 10/14/211508 Last Action: Continued Cholecalciferol (Vitamin D3) (Vitamin D3) 50 Mcg (2000 Unit) Capsule, 50 MCG PO DAILY, (Reported) Entered as Reported by: LENNY MCARTHUR on 10/14/211507 Last Action: Held Clopidogrel Bisulfate (Clopidogrel) 75 Mg Tablet, 75 MG PO DAILY, (Reported) Entered as Reported by: LENNY MCARTHUR on 07/06/201100 Last Action: Continued Hydroxyzine HCl (Hydroxyzine HCl) 10 Mg Tablet, 10 MG PO Q8H PRN for ANXIETY, (Reported) Entered as Reported by: LENNY MCARTHUR on 10/14/211507 Last Action: Held Telmisartan (Telmisartan) 40 Mg Tablet, 40 MG PO DAILY, (Reported) Entered as Reported by: LENNY MCARTHUR on 07/06/201100 Last Action: Held Discontinued Medications Aspirin (Aspirin EC) 81 Mg Tablet.dr, 81 MG PO DAILY, (Reported) Discontinued Reason: No Longer Taking Entered as Reported by: LENNY MCARTHUR on 07/06/201100 Last Action: Discontinued Atorvastatin Calcium (Atorvastatin Calcium) 80 Mg Tablet, 80 MG PO DAILY, (Reported) Discontinued Reason: No Longer Taking Entered as Reported by: LENNY MCARTHUR on 07/06/201100 Last Action: Discontinued Cholecalciferol (Vitamin D3) (Vitamin D3) 25 Mcg Capsule, 25 MCG PO DAILY, (R eported) Discontinued Reason: No Longer Taking Entered as Reported by: LENNY MCARTHUR on 07/06/201100 Last Action: Discontinued Vitamin E Acetate (Vitamin E) 400 Unit Capsule, 400 UNIT PO DAILY, (Reported) Discontinued Reason: No Longer Taking Entered as Reported by: LENNY MCARTHUR on 07/06/201100 Last Action: Discontinued Review of Systems Review of Systems Constitutional: see HPI, weakness EENTM: No Symptoms Reported Respiratory: No Symptoms Reported Cardiovascular: Chest Pain Gastrointestinal: Abdominal Pain, Constipated, Nausea, Vomiting Genitourinary: No Symptoms Reported Musculoskeletal: no symptoms reported Skin: no symptoms reported Psychiatric/Neurological: No Symptoms Reported All Other Systems Reviewed Negative Unless Noted: Yes Past Lnaiecs-Vyujqf-Lgozkg Hx Seasonal Allergies Seasonal Allergies: No Past Medical History Surgeries: Yes (cardiac stents) Coronary Stent Respiratory: No Cardiac: Yes Heart Attack, High Cholesterol, Hypertension Neurological: No Genitourinary: No Gastrointestinal: No Musculoskeletal: Yes Arthritis Endocrine: No HEENT: No Cancer: No Psychosocial: No Family Medical History No Pertinent Family Hx Physical Exam Vital Signs Vital Signs - First Documented 10/14/21 07:03 Temp 36.2 Pulse 83 Resp 16 B/P (MAP) 192/93 (126) O2 Delivery Room Air Capillary Refill : Height/Weight/BMI Height: '" Weight: lbs. oz. kg; 23.76 BMI Method: General Appearance: WD/WN, mild distress HEENT: PERRL/EOMI Neck: normal inspection Respiratory: lungs clear, normal breath sounds, no respiratory distress, no accessory muscle use Cardiovascular: regular rate, rhythm Peripheral Pulses: 2+ Radial Pulses (R), 2+ Radial Pulses (L) Gastrointestinal: normal bowel sounds, soft, tenderness (mild mid abdominal tenderness; no pulsatile masses) Extremities: normal range of motion, normal inspection, no pedal edema Neurologic/Psychiatric: alert, normal mood/affect, oriented x 3 Skin: normal color, other (cool and clammy) Progress/Results/Core Measures Results/Orders Lab Results Laboratory Tests Test 10/14/21 07:03 10/14/21 07:06 Range/Units White Blood Count 7.9 4.3-11.0 10^3/uL Red Blood Count 4.31 4.30-5.52 10^6/uL Hemoglobin 14.3 13.3-17.7 g/dL Hematocrit 37 L 40-54 % Mean Corpuscular Volume 87 80-99 fL Mean Corpuscular Hemoglobin 33 25-34 pg Mean Corpuscular Hemoglobin Concent 38 H 32-36 g/dL Red Cell Distribution Width 11.6 10.0-14.5 % Platelet Count 203 130-400 10^3/uL Mean Platelet Volume 9.8 9.0-12.2 fL Immature Granulocyte % (Auto) 1 % Neutrophils (%) (Auto) 69 42-75 % Lymphocytes (%) (Auto) 15 12-44 % Monocytes (%) (Auto) 15 H 0-12 % Eosinophils (%) (Auto) 1 0-10 % Basophils (%) (Auto) 0 0-10 % Neutrophils # (Auto) 5.5 1.8-7.8 10^3/uL Lymphocytes # (Auto) 1.2 1.0-4.0 10^3/uL Monocytes # (Auto) 1.2 H 0.0-1.0 10^3/uL Eosinophils # (Auto) 0.1 0.0-0.3 10^3/uL Basophils # (Auto) 0.0 0.0-0.1 10^3/uL Immature Granulocyte # (Auto) 0.0 0.0-0.1 10^3/uL Sodium Level 110 *L 135-145 MMOL/L Potassium Level 2.9 L 3.6-5.0 MMOL/L Chloride Level 76 L 98-107 MMOL/L Carbon Dioxide Level 21 21-32 MMOL/L Anion Gap 13 5-14 MMOL/L Blood Urea Nitrogen 9 7-18 MG/DL Creatinine 0.70 0.60-1.30 MG/DL Estimat Glomerular Filtration Rate 100 BUN/Creatinine Ratio 13 Glucose Level 184 H 70-105 MG/DL Calcium Level 8.5 8.5-10.1 MG/DL Corrected Calcium 8.3 L 8.5-10.1 MG/DL Magnesium Level 1.3 L 1.6-2.4 MG/DL Total Bilirubin 2.9 H 0.1-1.0 MG/DL Aspartate Amino Transf (AST/SGOT) 33 5-34 U/L Alanine Aminotransferase (ALT/SGPT) 35 0-55 U/L Alkaline Phosphatase 55 40-136 U/L Troponin I < 0.028 <0.028 NG/ML Total Protein 6.6 6.4-8.2 GM/DL Albumin 4.2 3.2-4.5 GM/DL Lipase 17 8-78 U/L Glucometer 202 H 70-110 MG/DL My Orders Orders - FLAKO PEDRO MD Ekg Tracing (10/14/21 07:09) Ed Iv/Invasive Line Start (10/14/21 07:10) Cbc With Automated Diff (10/14/21 07:10) Comprehensive Metabolic Panel (10/14/21 07:10) Lipase (10/14/21 07:10) Chest 1 View, Ap/Pa Only (10/14/21 07:10) Troponin I Bladimir (10/14/21 07:10) Fentanyl Inj (Sublimaze Injection) (10/14/21 07:15) Sodium Chloride 3% (Hypertonic Sodium Ch (10/14/21 08:00) Ed Admission (Communication) (10/14/21 08:08) Medications Given in ED Vital Signs/I&O 10/14/21 07:03 Temp 36.2 Pulse 83 Resp 16 B/P (MAP) 192/93 (126) O2 Delivery Room Air Admisison Planning May Need Admission (Planning): 07:55 Progress Progress Note : Time: 08:05 Progress Note discussed with Dr Blake - he advised to hold off the 3% Nacl. He will put in que'd orders. #% had been spiked and hung, but I asked the nurse to discontinue it at this time - it was immediately stopped. Initial ECG Impression Date: Oct 14, 2021 Initial ECG Impression Time: 07:15 Initial ECG Rate: 82 Initial ECG Rhythm: Normal Sinus Initial ECG Intervals KS interval 189 QRS [address]Tc [address] segment elevation, "scooped" ST segments in leads V5 and V6 and inferiorly/half to [address] segment depression Diagnostic Imaging Diagonstic Imaging: Xray Plain Films/CT/US/NM/MRI: chest Comments [facility], [facility]. [place], [place] NAME: JUNIE SANCHEZ [facility] REC#: [id number] PT STATUS: REG ER : 1955 PHYSICIAN: FLAKO PEDRO MD ADMIT DATE: 10/14/21/ER Draft Date of Exam:10/14/21 CHEST 1 VIEW, AP/PA ONLY INDICATION: Pain, nausea, vomiting and weakness. FINDINGS. Air trapping and COPD is chronic findings present. The heart size and pulmonary vascularity within normal limits. There is no failure, effusion or pneumothorax. IMPRESSION: Chronic COPD. No acute appearing abnormality and no change. Dictated on workstation # [id number] Dict: 10/14/2146 Trans: 10/14/21 0748 [facility] [id number] Interpreted by: MERCEDES BRYANT Electronically signed by: Departure Communication (Admissions) Time/Spoke to Admitting Phy: 08:[address] Blake Impression Primary Impression: Hyponatremia Disposition: ADMITTED INPATIENT Condition: Critical Admissions Decision to Admit Reason: Admit from ER (General) Decision to Admit/Date: Oct 14, 2021 Time/Decision to Admit Time: 07:59 Departure-Patient Inst. Referrals: TRISTIN PALM MD (PCP/Family) Primary Care Physician FLAKO PEDRO MD Oct 14, 2021 07:14
[2021-10-14] MEDS ORDERED: fentaNYL INJ 100 MCG/2 ML AMP IVP ONE (07:15)
[2021-10-14 07:22] LABS: ALBUMIN 4.2 GM/DL (3.2-4.5)
[2021-10-14 07:23] LABS: CHLORIDE 76 MMOL/L (98-107); POTASSIUM 2.9 MMOL/L (3.6-5.0)
[2021-10-14 07:24] LABS: BASOPHILS % (AUTO) 0 % (0-10); CALCIUM 8.5 MG/DL (8.5-10.1); EOSINOPHILS # (AUTO) 0.1 10^3/uL (0.0-0.3); EOSINOPHILS % (AUTO) 1 % (0-10); HEMATOCRIT 37 % (40-54); HEMOGLOBIN 14.3 g/dL (13.3-17.7); LYMPHOCYTES # (AUTO) 1.2 10^3/uL (1.0-4.0); LYMPHOCYTES % (AUTO) 15 % (12-44); MEAN CORPUSCULAR HEMOGLOBIN 33 pg (25-34); MEAN CORPUSCULAR HGB CONC 38 g/dL (32-36); MEAN CORPUSCULAR VOLUME 87 fL (80-99); MEAN PLATELET VOLUME 9.8 fL (9.0-12.2); MONOCYTES # (AUTO) 1.2 10^3/uL (0.0-1.0); MONOCYTES % (AUTO) 15 % (0-12); NEUTROPHILS # (AUTO) 5.5 10^3/uL (1.8-7.8); NEUTROPHILS % (AUTO) 69 % (42-75); PLATELET COUNT 203 10^3/uL (130-400); WHITE BLOOD COUNT 7.9 10^3/uL (4.3-11.0)
[2021-10-14 07:25] LABS: GLUCOSE 184 MG/DL (70-105); TOTAL PROTEIN 6.6 GM/DL (6.4-8.2)
[2021-10-14 07:26] LABS: CARBON DIOXIDE 21 MMOL/L (21-32)
[2021-10-14 07:27] LABS: BILIRUBIN,TOTAL 2.9 MG/DL (0.1-1.0)
[2021-10-14 07:28] LABS: ALKALINE PHOSPHATASE 55 U/L (40-136)
[2021-10-14 07:29] LABS: GFR ESTIMATED 100
[2021-10-14 07:30] LABS: BUN/CREATININE RATIO 13
[2021-10-14 07:31] LABS: ALANINE AMINOTRANSFERASE 35 U/L (0-55)
[2021-10-14 07:32] LABS: LIPASE 17 U/L (8-78)
[2021-10-14 07:48] LABS: SODIUM 110 MMOL/L (135-145)
--- NOTE | 2021-10-14 07:48 | Diagnostic Imaging Report ---
INDICATION: Pain, nausea, vomiting and weakness. FINDINGS. Air trapping and COPD is chronic findings present. The heart size and pulmonary vascularity within normal limits. There is no failure, effusion or pneumothorax. IMPRESSION: Chronic COPD. No acute appearing abnormality and no change. Dictated by: Dictated on workstation # [id number]
[2021-10-14] MEDS: SODIUM CHLORIDE 3% 500 ML IV SCH (08:02)
[2021-10-14] MEDS ORDERED: PROMETHAZINE INJ 25 MG/ML (PHENERGAN) AMP IVP ONE (10:00)
[2021-10-14] MEDS ORDERED: ANTACID SUSP 30 ML UDC (MYLANTA) PO PRN (10:00)
[2021-10-14] MEDS ORDERED: ONDANSETRON 4 MG/2 ML (SDV) Z0FRAN IV PRN (10:00)
[2021-10-14] MEDS ORDERED: polyethylene glycoL POWDER 17 GM (MIRALAX) PACK PO PRN (10:00)
[2021-10-14] MEDS ORDERED: ACETAMINOPHEN 325 MG TABLET PO PRN (10:00)
[2021-10-14] MEDS ORDERED: ONDANSETRON 4 MG (ZOFRAN) ORAL DISSOLVE TAB PO PRN (10:00)
--- NOTE | 2021-10-14 10:33 | Tele-ICU Consult ---
History of Present Illness History of Present Illness Date Seen by Provider: Oct 14, 2021 Time Seen by Provider: 10:32 Date of Admission (Tele-ICU Physician , consultation) Available chart/ vitals / labs / Images reviewed H&P is from ER notes Patient's information available about PMH, Shx, Fhx allergy reviewed in EMR. ROS as per chart and RN report Now in ICU, hemodynamically stable Video assessment done using teleICU camera, rest of exam as per RN Discussed with RN. Consultants: Hospital course: 66 y/o male with possible sz and hyponatremia recently started on zoloft but stopped taking 3d.a Was put on vistaril c/o abd pain A/P Hyponateremis - ? SIDH / zoloft side effect ? in addition to drinking "lots and lots of water". - possible Sz reported POTATO PEELER - started on 3 % at 25 ml/h - follow q2 h while on 3% , then q4 - goal NA by tomorrow an 118 ( not higher then 122) -check serum and urine osmolality, urine NA level, TSH - fluid restriction CAD/ PAD - stable QTc 467- follow replace K Lines : (Central Line Necessity Reviewed) Abdullahi: OG: Nutrition: Analgesia: Anxiety/ delirium VTE Prophylaxis: lov40 Stress Ulcer Prophylaxis: Plans in collaboration with bedside consultants and IM MDs. Discussed with RN to reach out if any questions or concerns A total of 33 minutes of critical care time was devoted to this patient today, required to treat and/or prevent further deterioration of critical care condition ( as above ) . Allergies and Home Medications Allergies Coded Allergies: No Known Drug Allergies (Unverified , 07/05/20) Home Medications Aspirin 81 Mg Tablet.dr, 81 MG PO DAILY, (Reported) Atorvastatin Calcium 80 Mg Tablet, 80 MG PO DAILY, (Reported) Cholecalciferol (Vitamin D3) 25 Mcg Capsule, 25 MCG PO DAILY, (Reported) Clopidogrel Bisulfate 75 Mg Tablet, 75 MG PO DAILY, (Reported) Telmisartan 40 Mg Tablet, 40 MG PO DAILY, (Reported) Vitamin E Acetate 400 Unit Capsule, 400 UNIT PO DAILY, (Reported) Past Medical/Social/Family Hx Patient Social History Tobacco Use?: No Smoking Status: Former Smoker Smokeless Tobacco Frequency: Never a User Use of E-Cig and/or Vaping dev: No E-Cig and/or Vaping Freq: Never a User Substance use?: No Alcohol Use?: No Pt stated abuse/neglect: No Immunizations Up To Date Influenza Vaccine Up-to-Date: No; Not Current Tetanus Booster (TDap): Unknown Hepatitis A: No Hepatitis B: No TB Skin Test: None Current Status Advance Directives: No Communicates: Verbally Primary Language: Surinamese Preferred Spoken Language: Surinamese Is interpretation needed?: No Sensory deficits: Hearing impairment Implanted or Applied Medical D: None Review of Systems Constitutional: see HPI Focused Exam Height, Weight, BMI Height: '" Weight: lbs. oz. kg; 22.74 BMI Method: Exam Exam Patient acknowledged, consented, and participated in this virtual visit which was conducted using real time audio/video Vital Signs Date Time Temp Pulse Resp B/P (MAP) Pulse Ox O2 Delivery O2 Flow Rate FiO2 10/14/21 09:55 36.6 80 168/80 Room Air 10/14/21 09:30 79 15 117/67 100 Room Air 10/14/21 07:03 36.2 83 16 192/93 (126) Room Air Height & Weight Height: '" Weight: lbs. oz. kg; 22.74 BMI Method: General Appearance: No Apparent Distress Capillary Refill: Less Than 3 Seconds Peripheral Pulses: 2+ Radial Pulses (R), 2+ Radial Pulses (L) Gastrointestinal: normal bowel sounds, soft, tenderness (mild mid abdominal tenderness; no pulsatile masses) Results Lab Laboratory Tests 10/14/21 07:03 10/14/21 09:53 Assessment/Plan Assessment/Plan ` ELIZABETH STEIN MD Oct 14, 2021 10:33
[2021-10-14] MEDS: ENOXAPARIN 40 MG/0.4 ML (LOVENOX) SYR SC SCH (10:43)
[2021-10-14] MEDS: POTASSIUM CL 10MEQ/50ML IVPB 50 ML IV SCH ×3 (10:49→12:36)
[2021-10-14 13:04] LABS: CALCIUM 9.3 MG/DL (8.5-10.1); CREATININE SERUM 0.59 MG/DL (0.60-1.30); POTASSIUM 3.2 MMOL/L (3.6-5.0)
[2021-10-14] MEDS ORDERED: AMLO-251 PO (15:08)
[2021-10-14] MEDS ORDERED: CHOL200074 PO (15:08)
[2021-10-14] MEDS ORDERED: HYDR-3584 PO (15:08)
[2021-10-14] MEDS ORDERED: ATOR80TA76 PO (15:09)
[2021-10-14 18:44] LABS: CALCIUM 8.9 MG/DL (8.5-10.1)
[2021-10-14 18:48] LABS: CREATININE SERUM 0.7 MG/DL (0.60-1.30)
--- NOTE | 2021-10-14 21:05 | History & Physical-Hospitalist ---
History of Present Illness HPI/Chief Complaint Chepe Dueñas is a 66 year old male with PMH HTN, HLD, CAD, depression, who presented with abdominal pain. He also reports nausea and vomiting. He has been on Zoloft for a couple weeks and has been having abdominal pain. It was stopped three days ago because of the pain. He has been drinking a lot of water. He had an episode which his thinks was a seizure. He became poorly responsive and his arms were stiff. He denies having any confusion or memory problems. He denies headaches. He denies chest pain. He denies shortness of breath. Source: patient, family Exam Limitations: no limitations Date Seen 10/14/21 Time Seen by a Provider: 09:35 Attending Physician Tristin Hogan MD PCP Admitting Physician: Bhupinder Kruger MD Attending Physician: Bhupinder Kruger MD Referring Physician Date of Admission Oct 14, 2021 at 08:09 Home Medications & Allergies Home Medications Reviewed patient Home Medication Reconciliation performed by pharmacy medication reconciliations cell technician and/or nursing. Patients Allergies have been reviewed. Allergies Allergies Coded Allergies No Known Drug Allergies (Unverified07/05/20) Past Uuqijat-Ppwnma-Knlvrq Hx Patient Social History Tobacco Use?: No Smoking Status: Former Smoker Smokeless Tobacco Frequency: Never a User Use of E-Cig and/or Vaping dev: No Use of E-Cig and/or Vaping Thee: Never a User Substance use?: No Alcohol Use?: No Pt feels they are or have been: No Immunizations Up To Date Date of Influenza Vaccine: Jan 23, 2020 Tetanus Booster (TDap): Unknown Hepatitis A: No Hepatitis B: No Seasonal Allergies Seasonal Allergies: No Current Status Advance Directives: No Communicates: Verbally Primary Language: Vincentian Preferred Spoken Language: Vincentian Is interpretation needed?: No Sensory deficits: Hearing impairment Implanted or Applied Medical D: None Past Medical History Surgeries: Coronary Stent Heart Attack, High Cholesterol, Hypertension Arthritis Family Medical History No Pertinent Family Hx Review of Systems Constitutional: see HPI Respiratory: no symptoms reported Cardiovascular: no symptoms reported Gastrointestinal: abdominal pain, nausea, vomiting Psychiatric/Neurological: Seizure Physical Exam Physical Exam Vital Signs Vital Signs - First Documented 10/14/21 10/14/21 07:03 09:30 Temp 36.2 Pulse 83 Resp 16 B/P (MAP) 192/93 (126) Pulse Ox 100 O2 Delivery Room Air Capillary Refill : Less Than 3 Seconds Height, Weight, BMI Height: '" Weight: lbs. oz. kg; 22.74 BMI Method: General Appearance: No Apparent Distress, WD/WN HEENT: PERRL/EOMI, Pharynx Normal Neck: Normal Inspection, Supple Respiratory: Lungs Clear, Normal Breath Sounds, No Respiratory Distress Cardiovascular: Regular Rate, Rhythm, No Edema, No Murmur Gastrointestinal: Normal Bowel Sounds, Non Tender, Soft Extremity: Normal Inspection, Non Tender, No Pedal Edema Neurologic/Psychiatric: Alert, Oriented x3 Skin: Normal Color, Warm/Dry Results Results/Procedures Labs Laboratory Tests 10/14/21 07:03 10/14/21 09:53 10/14/21 12:38 10/14/21 15:00 10/14/21 18:25 Patient resulted labs reviewed. Imaging: Reviewed Imaging Films, Reviewed Imaging Report Assessment/Plan Admission Diagnosis Hyponatremia Admission Status: Inpatient Order (span 2 midnights) Reason for Inpatient Admission: Electrolyte abnormalities Assessment and Plan Hyponatremia Possible seizure Hypokalemia Hypomagnesemia SIADH vs dilutional hyponatremia Serum osmolality pending Urine studies pending Sodium 110 on arrival Fluid restriction TeleICU consulted Started on 3% hypertonic saline Monitor sodium levels closely Replace K and Mg as needed HTN HLD CAD Continue home meds DVT prophylaxis: Lovenox Critical Care Critically Ill Patient Diagnosis/Problems Diagnosis/Problems (1) Hyponatremia Status: Acute (2) Hypokalemia Status: Acute (3) Hypomagnesemia Status: Acute (4) Adverse reaction to SSRI (selective serotonin reuptake inhibitor) Status: Acute Qualifiers: Encounter type: initial encounter Qualified Codes: T43.225A - Adverse effect of selective serotonin reuptake inhibitors, initial encounter BHUPINDER KRUGER MD Oct 14, 2021 21:04
[2021-10-14] MEDS: MELATONIN 3 MG TABLET PO PRN (21:41)
[2021-10-14 21:50] LABS: CALCIUM 9.1 MG/DL (8.5-10.1); CREATININE SERUM 1.01 MG/DL (0.60-1.30); MAGNESIUM 1.5 MG/DL (1.6-2.4); PHOSPHORUS 3.3 MG/DL (2.3-4.7); POTASSIUM 3.1 MMOL/L (3.6-5.0)
[2021-10-14] MEDS ORDERED: POTASSIUM CL 10MEQ/50ML IVPB 50 ML IV SCH (22:30)
[2021-10-14] MEDS ORDERED: NS IV 1000 ML 1,000 ML IV SCH (23:15)
[2021-10-14] MEDS: MAGNESIUM 1 GM/100 ML IVPB 100 ML IV SCH (23:34)
[2021-10-14] MEDS: KCL 20 MEQ TAB (K-DUR) PO SCH (23:35)
[2021-10-15 00:55] LABS: POTASSIUM 3.3 MMOL/L (3.6-5.0)
[2021-10-15 00:56] LABS: CALCIUM 9.1 MG/DL (8.5-10.1)
[2021-10-15 01:01] LABS: CREATININE SERUM 1.13 MG/DL (0.60-1.30)
[2021-10-15] MEDS: MAGNESIUM 1 GM/100 ML IVPB 100 ML IV SCH ×2 (01:38→06:34)
[2021-10-15] MEDS: KCL 20 MEQ TAB (K-DUR) PO SCH ×2 (01:38→06:34)
[2021-10-15 04:03] LABS: BASOPHILS % (AUTO) 0 % (0-10); EOSINOPHILS # (AUTO) 0.1 10^3/uL (0.0-0.3); EOSINOPHILS % (AUTO) 2 % (0-10); HEMATOCRIT 41 % (40-54); LYMPHOCYTES # (AUTO) 1.4 10^3/uL (1.0-4.0); LYMPHOCYTES % (AUTO) 19 % (12-44); MEAN CORPUSCULAR HEMOGLOBIN 33 pg (25-34); MEAN CORPUSCULAR HGB CONC 37 g/dL (32-36); MEAN CORPUSCULAR VOLUME 89 fL (80-99); MEAN PLATELET VOLUME 10.1 fL (9.0-12.2); MONOCYTES # (AUTO) 1.1 10^3/uL (0.0-1.0); MONOCYTES % (AUTO) 14 % (0-12); NEUTROPHILS # (AUTO) 4.7 10^3/uL (1.8-7.8); NEUTROPHILS % (AUTO) 65 % (42-75); PLATELET COUNT 208 10^3/uL (130-400); WHITE BLOOD COUNT 7.3 10^3/uL (4.3-11.0)
[2021-10-15 04:11] LABS: ALBUMIN 4.1 GM/DL (3.2-4.5); POTASSIUM 3.8 MMOL/L (3.6-5.0)
[2021-10-15 04:13] LABS: CALCIUM 9.2 MG/DL (8.5-10.1)
[2021-10-15 04:14] LABS: TOTAL PROTEIN 6.6 GM/DL (6.4-8.2)
[2021-10-15 04:16] LABS: BILIRUBIN,TOTAL 2.6 MG/DL (0.1-1.0)
[2021-10-15 04:17] LABS: CREATININE SERUM 1.01 MG/DL (0.60-1.30); PHOSPHORUS 4.1 MG/DL (2.3-4.7)
[2021-10-15 04:20] LABS: MAGNESIUM 2.5 MG/DL (1.6-2.4)
[2021-10-15 06:31] LABS: POTASSIUM 4.4 MMOL/L (3.6-5.0)
[2021-10-15 06:32] LABS: CALCIUM 9.3 MG/DL (8.5-10.1)
[2021-10-15] MEDS: POTASSIUM CL 10MEQ/50ML IVPB 50 ML IV SCH (06:34)
[2021-10-15 06:36] LABS: CREATININE SERUM 1.05 MG/DL (0.60-1.30)
[2021-10-15] MEDS: SODIUM CHLORIDE 3% 500 ML IV SCH (07:00)
[2021-10-15] MEDS: CLOPIDOGREL 75 MG (PLAVIX) TABLET PO SCH (09:02)
[2021-10-15] MEDS: ENOXAPARIN 40 MG/0.4 ML (LOVENOX) SYR SC SCH (09:02)
[2021-10-15 09:20] LABS: CALCIUM 9.1 MG/DL (8.5-10.1)
[2021-10-15 09:24] LABS: CREATININE SERUM 0.91 MG/DL (0.60-1.30)
[2021-10-15] MEDS: amLODIPine 10 MG (NORVASC) TAB PO SCH (09:30)
[2021-10-15] MEDS ORDERED: NS IV 1000 ML 1,000 ML IV SCH (10:15)
--- NOTE | 2021-10-15 12:05 | Tele-ICU Progress Note ---
Subjective Date Seen by a Provider: Oct 15, 2021 Time Seen by a Provider: 12:04 Subjective/Events-last exam Consultants: Hospital course: 66 y/o male with possible sz and hyponatremia ( revntly on vistaril c/o abd pain A/P Hyponateremis - ? SIDH / newly started zoloft side effect ? in addition to drinking "lots and lots of water". - possible Sz reported NUT [employer]ER - recived 3 % at 25 ml/h for 4 h - off IVF then - goal NA @118 ( achieved ,) will aim for 18 mEq/L in 48 h ---> aim for 128 by 10/16 am -serum and urine osmolality, urine NA level, orders - can not see results - TSH WNL - fluid restriction CAD/ PAD - stable QTc 467- follow Lines : (Central Line Necessity Reviewed) Abdullahi: void OG: Nutrition: po Analgesia: Anxiety/ delirium VTE Prophylaxis: lov40 Stress Ulcer Prophylaxis: Plans in collaboration with bedside consultants and IM MDs. Discussed with RN to reach out if any questions or concerns A total of 33 minutes of critical care time was devoted to this patient today, required to treat and/or prevent further deterioration of critical care condition ( as above ) . Sepsis Event Evaluation Height, Weight, BMI Height: '" Weight: lbs. oz. kg; 22.74 BMI Method: Exam Exam Patient acknowledged, consented, and participated in this virtual visit which was conducted using real time audio/video Vital Signs Date Time Temp Pulse Resp B/P (MAP) Pulse Ox O2 Delivery O2 Flow Rate FiO2 10/15/21 11:51 36.2 10/15/21 11:00 93 19 86/55 97 Room Air 10/15/21 10:00 86 80/57 96 Room Air 10/15/21 09:00 90 23 92/57 96 Room Air 10/15/21 08:00 Room Air 10/15/21 08:00 80 25 96/66 97 Room Air 10/15/21 07:50 36.4 10/15/21 07:00 75 10/15/21 07:00 73 97/69 98 Room Air 10/15/21 06:00 81 21 135/87 97 Room Air 10/15/21 05:00 Room Air 10/15/21 05:00 67 21 93/64 96 Room Air 10/15/21 04:00 69 21 95/67 95 Room Air 10/15/21 03:00 74 18 102/73 96 Room Air 10/15/21 02:00 74 16 93/62 96 Room Air 10/15/21 01:00 68 10/15/21 01:00 68 22 80/51 95 Room Air 10/15/21 01:00 Room Air 10/15/21 00:00 73 21 87/57 97 Room Air 10/14/21 23:00 72 18 89/55 96 Room Air 10/14/21 22:00 80 18 109/66 97 Room Air 10/14/21 21:00 81 25 84/59 96 Room Air 10/14/21 21:00 Room Air 10/14/21 20:14 80 10/14/21 20:00 89 22 97 Room Air 10/14/21 19:00 81 15 97 Room Air 10/14/21 18:00 75 97 Room Air 10/14/21 17:05 Room Air 10/14/21 17:00 77 18 141/78 97 Room Air 10/14/21 16:00 85 16 129/77 99 Room Air 10/14/21 15:00 75 16 120/76 98 Room Air 10/14/21 14:00 80 16 115/76 99 Room Air 10/14/21 13:27 37.0 10/14/21 13:09 Room Air 10/14/21 13:00 75 10/14/21 13:00 89 18 111/89 100 Room Air 10/14/21 12:45 82 16 126/77 99 Room Air 10/14/21 12:30 98 24 147/98 100 Room Air 10/14/21 12:15 80 17 130/86 98 Room Air I & O 10/15/21 07:00 Intake Total 7800 ml Output Total 2600 ml Balance 5200 ml Height & Weight Height: '" Weight: lbs. oz. kg; 22.74 BMI Method: General Appearance: No Apparent Distress, WD/WN HEENT: PERRL/EOMI, Pharynx Normal Neck: Normal Inspection, Supple Respiratory: Lungs Clear, Normal Breath Sounds, No Respiratory Distress Cardiovascular: Regular Rate, Rhythm, No Edema, No Murmur Capillary Refill: Less Than 3 Seconds Peripheral Pulses: 2+ Radial Pulses (R), 2+ Radial Pulses (L) Gastrointestinal: normal bowel sounds, soft, tenderness (mild mid abdominal tenderness; no pulsatile masses) Extremity: Normal Inspection, Non Tender, No Pedal Edema Neurologic/Psychiatric: Alert, Oriented x3 Skin: Normal Color, Warm/Dry Results Lab Laboratory Tests 10/14/21 07:03 10/14/21 09:53 10/14/21 12:38 10/14/21 15:00 10/14/21 18:25 10/14/21 21:15 10/15/21 00:08 10/15/21 03:30 10/15/21 06:06 10/15/21 09:03 Assessment/Plan Assessment/Plan 1 ELIZABETH STEIN MD Oct 15, 2021 12:05
[2021-10-15] MEDS ORDERED: LACTATED RINGERS 0 ML IV ONE (12:47)
[2021-10-15] MEDS ORDERED: D5 LR IV ONE ×2 (13:00→14:00)
[2021-10-15 13:03] LABS: HEMATOCRIT 40 % (40-54); HEMOGLOBIN 14.5 g/dL (13.3-17.7); MEAN CORPUSCULAR HEMOGLOBIN 33 pg (25-34); MEAN CORPUSCULAR HGB CONC 36 g/dL (32-36); MEAN CORPUSCULAR VOLUME 90 fL (80-99); MEAN PLATELET VOLUME 10.1 fL (9.0-12.2); PLATELET COUNT 200 10^3/uL (130-400); WHITE BLOOD COUNT 7.3 10^3/uL (4.3-11.0)
[2021-10-15 13:18] LABS: CHLORIDE 88 MMOL/L (98-107); POTASSIUM 4.1 MMOL/L (3.6-5.0)
[2021-10-15 13:19] LABS: CALCIUM 8.8 MG/DL (8.5-10.1); GLUCOSE 112 MG/DL (70-105)
[2021-10-15 13:21] LABS: CARBON DIOXIDE 23 MMOL/L (21-32)
[2021-10-15 13:23] LABS: CREATININE SERUM 1.14 MG/DL (0.60-1.30); GFR ESTIMATED 70
[2021-10-15 13:24] LABS: BUN/CREATININE RATIO 18; SODIUM 118 MMOL/L (135-145)
[2021-10-15] MEDS: NS IV 1000 ML 1,000 ML IV SCH (14:06)
[2021-10-15 16:42] LABS: POTASSIUM 4.4 MMOL/L (3.6-5.0)
[2021-10-15 16:44] LABS: CALCIUM 9.1 MG/DL (8.5-10.1)
[2021-10-15 16:48] LABS: CREATININE SERUM 1.07 MG/DL (0.60-1.30)
[2021-10-15] MEDS: ALPRAZolam 0.25 MG (XANAX) TAB PO PRN (17:48)
--- NOTE | 2021-10-15 17:59 | Progress Note - Hospitalist ---
Subjective HPI/CC On Admission Date Seen by Provider: Oct 15, 2021 Time Seen by Provider: 09:25 Chepe Dueñas is a 66 year old male with PMH HTN, HLD, CAD, depression, who presented with abdominal pain. He also reports nausea and vomiting. He has been on Zoloft for a couple weeks and has been having abdominal pain. It was stopped three days ago because of the pain. He has been drinking a lot of water. He had an episode which his thinks was a seizure. He became poorly responsive and his arms were stiff. He denies having any confusion or memory problems. He denies headaches. He denies chest pain. He denies shortness of breath. Subjective/Events-last exam He is having anxiety. He denies headache. He denies seizures. He denies abdominal pain. He denies nausea and vomiting. Focused Exam Lactate Level 10/15/21 12:45: Lactic Acid Level 1.46 Objective Exam Vital Signs Vital Signs Date Time Temp Pulse Resp B/P (MAP) Pulse Ox O2 Delivery O2 Flow Rate FiO2 10/15/21 17:00 90 118/71 95 Room Air 10/15/21 16:00 19 10/15/21 11:51 36.2 Capillary Refill : Less Than 3 Seconds General Appearance: No Apparent Distress, WD/WN, Anxious Respiratory: Lungs Clear, No Respiratory Distress Cardiovascular: Regular Rate, Rhythm, Systolic Murmur Gastrointestinal: Normal Bowel Sounds, Soft Extremity: Normal Inspection, No Pedal Edema Neurologic/Psychiatric: Alert, No Motor/Sensory Deficits Skin: Normal Color, Warm/Dry Results/Procedures Lab Laboratory Tests 10/14/21 18:25 10/14/21 21:15 10/15/21 00:08 10/15/21 03:30 10/15/21 06:06 10/15/21 09:03 10/15/21 12:45 10/15/21 16:10 Patient resulted labs reviewed. Imaging: Reviewed Imaging Films, Reviewed Imaging Report Assessment/Plan Assessment and Plan Assess & Plan/Chief Complaint Hyponatremia Possible seizure Hypokalemia Hypomagnesemia SIADH vs dilutional hyponatremia Serum osmolality 237 Urine studies pending Sodium 110 on arrival, 118 this morning Fluid restriction TeleICU following 3% hypertonic saline Monitor sodium levels closely Replace K and Mg as needed Anxiety Add Xanax HTN HLD CAD Continue home meds DVT prophylaxis: Lovenox Critical Care Critically Ill Patient Diagnosis/Problems Diagnosis/Problems (1) Hyponatremia Status: Acute (2) Hypokalemia Status: Acute (3) Hypomagnesemia Status: Acute (4) Adverse reaction to SSRI (selective serotonin reuptake inhibitor) Status: Acute Qualifiers: Encounter type: initial encounter Qualified Codes: T43.225A - Adverse effect of selective serotonin reuptake inhibitors, initial encounter BHUPINDER KRUGER MD Oct 15, 2021 17:59
[2021-10-15 20:21] LABS: CALCIUM 8.4 MG/DL (8.5-10.1)
[2021-10-15 20:25] LABS: CREATININE SERUM 0.99 MG/DL (0.60-1.30)
[2021-10-15] MEDS: MELATONIN 3 MG TABLET PO PRN (22:05)
[2021-10-16] MEDS: SODIUM CHLORIDE 3% 500 ML IV SCH (00:35)
[2021-10-16 00:51] LABS: POTASSIUM 3.9 MMOL/L (3.6-5.0)
[2021-10-16 00:53] LABS: CALCIUM 8.6 MG/DL (8.5-10.1)
[2021-10-16 00:57] LABS: CREATININE SERUM 0.8 MG/DL (0.60-1.30)
[2021-10-16] MEDS: NS IV 1000 ML 1,000 ML IV SCH ×3 (02:07→21:02)
[2021-10-16 05:17] LABS: BASOPHILS % (AUTO) 0 % (0-10); EOSINOPHILS # (AUTO) 0.2 10^3/uL (0.0-0.3); EOSINOPHILS % (AUTO) 3 % (0-10); HEMATOCRIT 39 % (40-54); HEMOGLOBIN 13.8 g/dL (13.3-17.7); LYMPHOCYTES # (AUTO) 1.9 10^3/uL (1.0-4.0); LYMPHOCYTES % (AUTO) 26 % (12-44); MEAN CORPUSCULAR HEMOGLOBIN 33 pg (25-34); MEAN CORPUSCULAR HGB CONC 36 g/dL (32-36); MEAN CORPUSCULAR VOLUME 92 fL (80-99); MEAN PLATELET VOLUME 10.2 fL (9.0-12.2); MONOCYTES # (AUTO) 0.9 10^3/uL (0.0-1.0); MONOCYTES % (AUTO) 12 % (0-12); NEUTROPHILS # (AUTO) 4.2 10^3/uL (1.8-7.8); NEUTROPHILS % (AUTO) 58 % (42-75); PLATELET COUNT 179 10^3/uL (130-400); WHITE BLOOD COUNT 7.3 10^3/uL (4.3-11.0)
[2021-10-16 05:35] LABS: ALBUMIN 3.7 GM/DL (3.2-4.5)
[2021-10-16 05:36] LABS: CALCIUM 8.5 MG/DL (8.5-10.1)
[2021-10-16 05:38] LABS: TOTAL PROTEIN 5.9 GM/DL (6.4-8.2)
[2021-10-16 05:39] LABS: BILIRUBIN,TOTAL 1.7 MG/DL (0.1-1.0)
[2021-10-16 05:41] LABS: CREATININE SERUM 0.72 MG/DL (0.60-1.30); PHOSPHORUS 3.5 MG/DL (2.3-4.7)
[2021-10-16 05:44] LABS: MAGNESIUM 1.7 MG/DL (1.6-2.4)
[2021-10-16] MEDS: POTASSIUM CL 10MEQ/50ML IVPB 50 ML IV SCH (06:10)
[2021-10-16] MEDS: KCL 20 MEQ TAB (K-DUR) PO SCH (06:11)
[2021-10-16] MEDS: MAGNESIUM 1 GM/100 ML IVPB 100 ML IV SCH (06:11)
[2021-10-16] MEDS: amLODIPine 10 MG (NORVASC) TAB PO SCH (08:27)
[2021-10-16] MEDS: CLOPIDOGREL 75 MG (PLAVIX) TABLET PO SCH (08:27)
[2021-10-16] MEDS: ALPRAZolam 0.25 MG (XANAX) TAB PO PRN ×2 (08:27→18:30)
[2021-10-16 08:31] LABS: CALCIUM 8.5 MG/DL (8.5-10.1); CREATININE SERUM 0.66 MG/DL (0.60-1.30)
--- NOTE | 2021-10-16 11:11 | Tele-ICU Progress Note ---
Subjective Date Seen by a Provider: Oct 16, 2021 Time Seen by a Provider: 11:00 Subjective/Events-last exam Available chart/vitals/labs/images reviewed. Video assessment done using telemetry ICU camera, rest of exam as per RN. Discussion with the RN, exam as per RN. Hospital course Patient today offers no new complaints. His sodium is slowly improving. Is currently on normal saline at 100 cc/h and he is getting sodium check every 4 hours. Sepsis Event Evaluation Height, Weight, BMI Height: '" Weight: lbs. oz. kg; 22.74 BMI Method: Focused Exam Lactate Level 10/15/21 12:45: Lactic Acid Level 1.46 Exam Exam Patient acknowledged, consented, and participated in this virtual visit which was conducted using real time audio/video Vital Signs Date Time Temp Pulse Resp B/P (MAP) Pulse Ox O2 Delivery O2 Flow Rate FiO2 10/16/21 10:00 85 17 108/70 98 Room Air 10/16/21 09:00 86 118/57 99 Room Air 10/16/21 08:00 86 17 139/90 95 Room Air 10/16/21 08:00 36.3 10/16/21 07:00 78 10/16/21 07:00 84 18 142/97 92 Room Air 10/16/21 06:00 70 15 117/64 98 Room Air 10/16/21 05:00 67 20 168/65 94 Room Air 10/16/21 04:00 66 14 102/60 99 Room Air 10/16/21 04:00 Room Air 10/16/21 03:00 71 14 147/73 97 Room Air 10/16/21 02:00 78 23 131/59 96 Room Air 10/16/21 01:00 80 10/16/21 01:00 77 16 127/72 96 Room Air 10/16/21 00:00 77 16 127/65 95 Room Air 10/16/21 00:00 Room Air 10/16/21 00:00 36.6 10/15/21 23:00 86 17 122/62 97 Room Air 10/15/21 22:00 80 102/62 98 Room Air 10/15/21 21:00 58 113/50 95 Room Air 10/15/21 20:00 36.8 10/15/21 20:00 96 101/66 93 Room Air 10/15/21 20:00 Room Air 10/15/21 19:00 100 10/15/21 19:00 104 152/81 94 Room Air 10/15/21 18:00 87 153/84 94 Room Air 10/15/21 17:00 90 118/71 95 Room Air 10/15/21 16:00 Room Air 10/15/21 16:00 95 19 114/66 99 Room Air 10/15/21 15:00 86 13 84/60 96 Room Air 10/15/21 14:00 84 10 118/86 98 Room Air 10/15/21 13:00 76 10/15/21 13:00 78 27 85/59 98 Room Air 10/15/21 12:00 Room Air 10/15/21 12:00 83 26 76/58 96 Room Air 10/15/21 11:51 36.2 I & O 10/16/21 07:00 Intake Total 6835 ml Output Total 1650 ml Balance 5185 ml Height & Weight Height: '" Weight: lbs. oz. kg; 22.74 BMI Method: General Appearance: No Apparent Distress, WD/WN, Anxious HEENT: PERRL/EOMI, Pharynx Normal Neck: Normal Inspection, Supple Respiratory: Lungs Clear, No Respiratory Distress Cardiovascular: Regular Rate, Rhythm, Systolic Murmur Capillary Refill: Less Than 3 Seconds Peripheral Pulses: 2+ Radial Pulses (R), 2+ Radial Pulses (L) Gastrointestinal: normal bowel sounds, soft, tenderness (mild mid abdominal tenderness; no pulsatile masses) Extremity: Normal Inspection, No Pedal Edema Neurologic/Psychiatric: Alert, No Motor/Sensory Deficits Skin: Normal Color, Warm/Dry Results Lab Laboratory Tests 10/14/21 12:38 10/14/21 15:00 10/14/21 18:25 10/14/21 21:15 10/15/21 00:08 10/15/21 03:30 10/15/21 06:06 10/15/21 09:03 10/15/21 12:45 10/15/21 16:10 10/15/21 20:02 10/16/21 00:30 10/16/21 04:36 10/16/21 08:06 Assessment/Plan Assessment/Plan 1. Hyponatremia of undetermined etiology. It could be either dilutional or SIADH. Urine studies are pending. 2. History of anxiety 3. Hypertension 4. Coronary artery disease and hyperlipidemia. Recommendations 1. continue hydration with normal saline and monitor closely is a sodium level. 2. DVT prophylaxis 3. Monitor electrolytes balance closely. Critical Care: Critically Ill Patient Time spent with patient (mins): 15 UMAIR MCCANN MD Oct 16, 2021 11:11
[2021-10-16] MEDS: ENOXAPARIN 40 MG/0.4 ML (LOVENOX) SYR SC SCH (11:19)
--- NOTE | 2021-10-16 16:26 | Progress Note - Hospitalist ---
Subjective HPI/CC On Admission Date Seen by Provider: Oct 16, 2021 Time Seen by Provider: 09:35 Chepe Dueñas is a 66 year old male with PMH HTN, HLD, CAD, depression, who presented with abdominal pain. He also reports nausea and vomiting. He has been on Zoloft for a couple weeks and has been having abdominal pain. It was stopped three days ago because of the pain. He has been drinking a lot of water. He had an episode which his thinks was a seizure. He became poorly responsive and his arms were stiff. He denies having any confusion or memory problems. He denies headaches. He denies chest pain. He denies shortness of breath. Subjective/Events-last exam He is feeling better. His anxiety is improved. He has no other complaints or concerns. Focused Exam Lactate Level 10/15/21 12:45: Lactic Acid Level 1.46 Objective Exam Vital Signs Vital Signs Date Time Temp Pulse Resp B/P (MAP) Pulse Ox O2 Delivery O2 Flow Rate FiO2 10/16/21 16:00 72 20 118/61 97 Room Air 10/16/21 15:53 37.0 Capillary Refill : Less Than 3 Seconds General Appearance: No Apparent Distress, WD/WN Respiratory: Lungs Clear, No Respiratory Distress Cardiovascular: Regular Rate, Rhythm, No Murmur Gastrointestinal: Normal Bowel Sounds, Soft Extremity: Normal Inspection, No Pedal Edema Neurologic/Psychiatric: Alert, No Motor/Sensory Deficits, Normal Mood/Affect Skin: Normal Color, Warm/Dry Results/Procedures Lab Laboratory Tests 10/15/21 20:02 10/16/21 00:30 10/16/21 04:36 10/16/21 08:06 10/16/21 13:20 Patient resulted labs reviewed. Imaging: Reviewed Imaging Films, Reviewed Imaging Report Assessment/Plan Assessment and Plan Assess & Plan/Chief Complaint Hyponatremia Possible seizure Hypokalemia Hypomagnesemia SIADH vs dilutional hyponatremia Serum osmolality 237 Urine studies pending Sodium 110 on arrival, 124 this morning Currently on LR Fluid restriction TeleICU following Monitor sodium levels closely Replace K and Mg as needed Anxiety Continue Xanax HTN HLD CAD Continue home meds DVT prophylaxis: Lovenox Diagnosis/Problems Diagnosis/Problems (1) Hyponatremia Status: Acute (2) Hypokalemia Status: Acute (3) Hypomagnesemia Status: Acute (4) Adverse reaction to SSRI (selective serotonin reuptake inhibitor) Status: Acute Qualifiers: Encounter type: initial encounter Qualified Codes: T43.225A - Adverse effect of selective serotonin reuptake inhibitors, initial encounter (5) Anxiety Status: Acute BHUPINDER KRUGER MD Oct 16, 2021 16:26
[2021-10-16] MEDS: SODIUM CHLORIDE 1 GM TABLET PO SCH (20:46)
[2021-10-16] MEDS: MELATONIN 3 MG TABLET PO PRN (21:02)
[2021-10-17] MEDS: ALPRAZolam 0.25 MG (XANAX) TAB PO PRN ×2 (02:43→11:04)
[2021-10-17 05:49] LABS: BASOPHILS % (AUTO) 1 % (0-10); EOSINOPHILS # (AUTO) 0.3 10^3/uL (0.0-0.3); EOSINOPHILS % (AUTO) 6 % (0-10); HEMATOCRIT 34 % (40-54); LYMPHOCYTES # (AUTO) 1.8 10^3/uL (1.0-4.0); LYMPHOCYTES % (AUTO) 38 % (12-44); MEAN CORPUSCULAR HEMOGLOBIN 33 pg (25-34); MEAN CORPUSCULAR HGB CONC 35 g/dL (32-36); MEAN CORPUSCULAR VOLUME 92 fL (80-99); MEAN PLATELET VOLUME 10.3 fL (9.0-12.2); MONOCYTES # (AUTO) 0.7 10^3/uL (0.0-1.0); MONOCYTES % (AUTO) 14 % (0-12); NEUTROPHILS % (AUTO) 42 % (42-75); PLATELET COUNT 158 10^3/uL (130-400); WHITE BLOOD COUNT 4.8 10^3/uL (4.3-11.0)
[2021-10-17 06:05] LABS: POTASSIUM 4.2 MMOL/L (3.6-5.0)
[2021-10-17 06:07] LABS: CALCIUM 8.1 MG/DL (8.5-10.1)
[2021-10-17 06:11] LABS: CREATININE SERUM 0.57 MG/DL (0.60-1.30)
[2021-10-17 06:14] LABS: MAGNESIUM 1.6 MG/DL (1.6-2.4)
[2021-10-17] MEDS: POTASSIUM CL 10MEQ/50ML IVPB 50 ML IV SCH (06:35)
[2021-10-17] MEDS: MAGNESIUM 1 GM/100 ML IVPB 100 ML IV SCH ×3 (06:35→08:55)
[2021-10-17] MEDS: KCL 20 MEQ TAB (K-DUR) PO SCH (06:35)
[2021-10-17] MEDS: amLODIPine 10 MG (NORVASC) TAB PO SCH (08:04)
[2021-10-17] MEDS: CLOPIDOGREL 75 MG (PLAVIX) TABLET PO SCH (08:04)
[2021-10-17] MEDS: NS IV 1000 ML 1,000 ML IV SCH ×2 (08:05→22:56)
[2021-10-17] MEDS: ENOXAPARIN 40 MG/0.4 ML (LOVENOX) SYR SC SCH (08:55)
[2021-10-17] MEDS: SODIUM CHLORIDE 1 GM TABLET PO SCH ×2 (08:55→20:54)
--- NOTE | 2021-10-17 10:25 | Tele-ICU Progress Note ---
Subjective Date Seen by a Provider: Oct 17, 2021 Time Seen by a Provider: 10:23 Subjective/Events-last exam Available chart/vitals/labs/images reviewed. Video assessment done using telemetry ICU camera, rest of exam as per RN. Discussion with the RN, exam as per RN. Hospital course Patient today resting comfortably. He is very hard of hearing but denies any new complaints. His sodium improved to 127 today. Reviewed with agriculture sales account manager Sepsis Event Evaluation Height, Weight, BMI Height: '" Weight: lbs. oz. kg; 22.74 BMI Method: Focused Exam Lactate Level 10/15/21 12:45: Lactic Acid Level 1.46 Exam Exam Patient acknowledged, consented, and participated in this virtual visit which was conducted using real time audio/video Vital Signs Date Time Temp Pulse Resp B/P (MAP) Pulse Ox O2 Delivery O2 Flow Rate FiO2 10/17/21 10:00 75 12 98/76 97 Room Air 10/17/21 09:00 78 23 96/66 99 Room Air 10/17/21 08:15 Room Air 10/17/21 08:13 35.8 10/17/21 08:00 80 131/99 99 Room Air 10/17/21 07:12 97 Room Air 10/17/21 07:00 71 10/17/21 07:00 63 149/69 97 Nasal Cannula 2.00 10/17/21 06:00 64 137/75 96 Nasal Cannula 2.00 10/17/21 05:00 72 144/75 95 Nasal Cannula 2.00 10/17/21 04:29 Nasal Cannula 2.00 10/17/21 04:00 36.8 10/17/21 04:00 68 105/63 96 Room Air 10/17/21 04:00 Room Air 10/17/21 03:00 73 119/73 97 Room Air 10/17/21 02:00 68 154/79 96 Room Air 10/17/21 01:00 67 118/77 95 Room Air 10/17/21 01:00 68 10/17/21 00:00 Room Air 10/17/21 00:00 73 143/79 95 Room Air 10/16/21 23:00 66 135/70 95 Room Air 10/16/21 22:00 68 120/71 94 Room Air 10/16/21 21:00 73 22 122/57 96 Room Air 10/16/21 20:00 80 18 130/57 98 Room Air 10/16/21 20:00 Room Air 10/16/21 19:36 36.9 10/16/21 19:00 84 10/16/21 19:00 82 16 118/61 98 Room Air 10/16/21 18:00 79 21 133/87 96 Room Air 10/16/21 17:00 82 19 172/81 96 Room Air 10/16/21 16:22 Room Air 10/16/21 16:00 72 20 118/61 97 Room Air 10/16/21 15:53 37.0 10/16/21 15:00 73 114/56 97 Room Air 10/16/21 14:00 74 109/55 96 Room Air 10/16/21 13:00 76 107/62 96 Room Air 10/16/21 12:56 80 10/16/21 12:30 Room Air 10/16/21 12:00 78 131/54 96 Room Air 10/16/21 11:00 82 26 111/58 97 Room Air I & O 10/17/21 07:00 Intake Total 4100 ml Output Total 1850 ml Balance 2250 ml Height & Weight Height: '" Weight: lbs. oz. kg; 22.74 BMI Method: General Appearance: No Apparent Distress, WD/WN HEENT: PERRL/EOMI, Pharynx Normal Neck: Normal Inspection, Supple Respiratory: Lungs Clear, No Respiratory Distress Cardiovascular: Regular Rate, Rhythm, No Murmur Capillary Refill: Less Than 3 Seconds Peripheral Pulses: 2+ Radial Pulses (R), 2+ Radial Pulses (L) Gastrointestinal: normal bowel sounds, soft, tenderness (mild mid abdominal tenderness; no pulsatile masses) Extremity: Normal Inspection, No Pedal Edema Neurologic/Psychiatric: Alert, No Motor/Sensory Deficits, Normal Mood/Affect Skin: Normal Color, Warm/Dry Results Lab Laboratory Tests 10/15/21 12:45 10/15/21 16:10 10/15/21 20:02 10/16/21 00:30 10/16/21 04:36 10/16/21 08:06 10/16/21 13:20 10/16/21 17:15 10/17/21 05:08 Assessment/Plan Assessment/Plan 1. Hyponatremia of undetermined etiology.improving. It could be either dilutional or SIADH. Urine studies are pending. 2. History of anxiety 3. Hypertension 4. Coronary artery disease and hyperlipidemia. Recommendations 1. continue hydration with normal saline but decrease rate to 60 mls/hr 2. DVT prophylaxis 3. Monitor electrolytes balance closely. 4. from critical care point of view he may be transfered to medical floor. Critical Care: Critically Ill Patient Time spent with patient (mins): 15 UMAIR MCCANN MD Oct 17, 2021 10:25
[2021-10-17 13:28] VITALS: BP 149/78
[2021-10-17 15:30] VITALS: BP 119/68
--- NOTE | 2021-10-17 16:13 | Progress Note - Hospitalist ---
Subjective HPI/CC On Admission Date Seen by Provider: Oct 17, 2021 Time Seen by Provider: 10:50 Chepe Dueñas is a 66 year old male with PMH HTN, HLD, CAD, depression, who presented with abdominal pain. He also reports nausea and vomiting. He has been on Zoloft for a couple weeks and has been having abdominal pain. It was stopped three days ago because of the pain. He has been drinking a lot of water. He had an episode which his thinks was a seizure. He became poorly responsive and his arms were stiff. He denies having any confusion or memory problems. He denies headaches. He denies chest pain. He denies shortness of breath. Subjective/Events-last exam He is still feeling anxious. He has no other complaints. Focused Exam Lactate Level 10/15/21 12:45: Lactic Acid Level 1.46 Objective Exam Vital Signs Vital Signs Date Time Temp Pulse Resp B/P (MAP) Pulse Ox O2 Delivery O2 Flow Rate FiO2 10/17/21 14:36 Room Air 10/17/21 13:28 37.5 88 16 149/78 (101) 95 10/17/21 07:00 2.00 Capillary Refill : Less Than 3 Seconds General Appearance: No Apparent Distress, Anxious Respiratory: Lungs Clear, No Respiratory Distress Cardiovascular: Regular Rate, Rhythm, No Murmur Gastrointestinal: Normal Bowel Sounds, Soft Neurologic/Psychiatric: Alert, No Motor/Sensory Deficits Results/Procedures Lab Laboratory Tests 10/16/21 17:15 10/17/21 05:08 Patient resulted labs reviewed. Imaging: Reviewed Imaging Films, Reviewed Imaging Report Assessment/Plan Assessment and Plan Assess & Plan/Chief Complaint Hyponatremia Possible seizure Hypokalemia Hypomagnesemia SIADH vs dilutional hyponatremia Sodium 110 on arrival, 127 this morning Continue NS Add sodium tablets Transfer to medical floor Anxiety Continue Xanax HTN HLD CAD Continue home meds DVT prophylaxis: Lovenox Diagnosis/Problems Diagnosis/Problems (1) Hyponatremia Status: Acute (2) Hypokalemia Status: Acute (3) Hypomagnesemia Status: Acute (4) Adverse reaction to SSRI (selective serotonin reuptake inhibitor) Status: Acute Qualifiers: Encounter type: initial encounter Qualified Codes: T43.225A - Adverse effect of selective serotonin reuptake inhibitors, initial encounter (5) Anxiety Status: Acute BHUPINDER KRUGER MD Oct 17, 2021 16:13
[2021-10-17] MEDS: ALPRAZolam 0.25 MG (XANAX) TAB PO SCH (18:25)
[2021-10-17 19:49] VITALS: BP 134/73
[2021-10-17] MEDS: MELATONIN 3 MG TABLET PO PRN (22:58)
[2021-10-17 23:43] VITALS: BP 137/71
[2021-10-18 04:00] VITALS: BP 161/80
[2021-10-18 06:05] LABS: BASOPHILS % (AUTO) 1 % (0-10); EOSINOPHILS # (AUTO) 0.3 10^3/uL (0.0-0.3); EOSINOPHILS % (AUTO) 6 % (0-10); HEMATOCRIT 34 % (40-54); HEMOGLOBIN 11.8 g/dL (13.3-17.7); LYMPHOCYTES # (AUTO) 1.3 10^3/uL (1.0-4.0); LYMPHOCYTES % (AUTO) 29 % (12-44); MEAN CORPUSCULAR HEMOGLOBIN 33 pg (25-34); MEAN CORPUSCULAR HGB CONC 35 g/dL (32-36); MEAN CORPUSCULAR VOLUME 93 fL (80-99); MONOCYTES # (AUTO) 0.6 10^3/uL (0.0-1.0); MONOCYTES % (AUTO) 14 % (0-12); NEUTROPHILS # (AUTO) 2.2 10^3/uL (1.8-7.8); NEUTROPHILS % (AUTO) 50 % (42-75); PLATELET COUNT 156 10^3/uL (130-400); WHITE BLOOD COUNT 4.4 10^3/uL (4.3-11.0)
[2021-10-18 06:19] LABS: CALCIUM 8.4 MG/DL (8.5-10.1)
[2021-10-18] MEDS: POTASSIUM CL 10MEQ/50ML IVPB 50 ML IV SCH (06:20)
[2021-10-18] MEDS: KCL 20 MEQ TAB (K-DUR) PO SCH (06:21)
[2021-10-18 06:23] LABS: CREATININE SERUM 0.59 MG/DL (0.60-1.30)
[2021-10-18 06:26] LABS: MAGNESIUM 1.7 MG/DL (1.6-2.4)
[2021-10-18] MEDS: MAGNESIUM 1 GM/100 ML IVPB 100 ML IV SCH ×3 (06:42→08:28)
[2021-10-18 07:56] VITALS: BP 128/63
[2021-10-18] MEDS: ALPRAZolam 0.25 MG (XANAX) TAB PO SCH (08:28)
[2021-10-18] MEDS: ENOXAPARIN 40 MG/0.4 ML (LOVENOX) SYR SC SCH (08:29)
[2021-10-18] MEDS: CLOPIDOGREL 75 MG (PLAVIX) TABLET PO SCH (08:29)
[2021-10-18] MEDS: amLODIPine 10 MG (NORVASC) TAB PO SCH (08:29)
[2021-10-18] MEDS: SODIUM CHLORIDE 1 GM TABLET PO SCH (08:29)
[2021-10-18] MEDS: NS IV 1000 ML 1,000 ML IV SCH (09:38)
--- NOTE | 2021-10-18 09:50 | Discharge Summary ---
Diagnosis/Chief Complaint Date of Admission Oct 14, 2021 at 08:09 Date of Discharge Admission Diagnosis Hyponatremia Primary Care Tristin Hogan MD Discharge Diagnosis (1) Hyponatremia Status: Acute (2) Hypokalemia Status: Acute (3) Hypomagnesemia Status: Acute (4) Adverse reaction to SSRI (selective serotonin reuptake inhibitor) Status: Acute (5) Anxiety Status: Acute Discharge Summary Discharge Physical Exam Allergies: Coded Allergies: No Known Drug Allergies (Unverified , 07/05/20) Vitals & I&Os Vital Signs Date Time Temp Pulse Resp B/P (MAP) Pulse Ox O2 Delivery O2 Flow Rate FiO2 10/18/21 07:56 36.9 64 18 128/63 (84) 96 Room Air 10/17/21 07:00 2.00 Hospital Course Labs (last 24 hrs) Laboratory Tests 10/18/21 05:54: White Blood Count 4.4, Red Blood Count 3.62L, Hemoglobin 11.8L, Hematocrit 34L, Mean Corpuscular Volume 93, Mean Corpuscular Hemoglobin 33, Mean Corpuscular Hemoglobin Concent 35, Red Cell Distribution Width 12.2, Platelet Count 156, Mean Platelet Volume 10.0, Immature Granulocyte % (Auto) 1, Neutrophils (%) (Auto) 50, Lymphocytes (%) (Auto) 29, Monocytes (%) (Auto) 14H, Eosinophils (%) (Auto) 6, Basophils (%) (Auto) 1, Neutrophils # (Auto) 2.2, Lymphocytes # (Auto) 1.3, Monocytes # (Auto) 0.6, Eosinophils # (Auto) 0.3, Basophils # (Auto) 0.0, Immature Granulocyte # (Auto) 0.0, Sodium Level 127L, Potassium Level 4.0, Chloride Level 96L, Carbon Dioxide Level 25, Anion Gap 6, Blood Urea Nitrogen 6L , Creatinine 0.59L, Estimat Glomerular Filtration Rate 106, BUN/Creatinine Ratio 10, Glucose Level 104, Calcium Level 8.4L, Magnesium Level 1.7 Patient resulted labs reviewed. Pending Labs Laboratory Tests 10/18/21 05:54: White Blood Count 4.4, Red Blood Count 3.62, Hemoglobin 11.8, Hematocrit 34, Mean Corpuscular Volume 93, Mean Corpuscular Hemoglobin 33, Mean Corpuscular Hemoglobin Concent 35, Red Cell Distribution Width 12.2, Platelet Count 156, Mean Platelet Volume 10.0, Immature Granulocyte % (Auto) 1, Neutrophils (%) (Auto) 50, Lymphocytes (%) (Auto) 29, Monocytes (%) (Auto) 14, Eosinophils (%) (Auto) 6, Basophils (%) (Auto) 1, Neutrophils # (Auto) 2.2, Lymphocytes # (Auto) 1.3, Monocytes # (Auto) 0.6, Eosinophils # (Auto) 0.3, Basophils # (Auto) 0.0, Immature Granulocyte # (Auto) 0.0, Sodium Level 127, Potassium Level 4.0, Chloride Level 96, Carbon Dioxide Level 25, Anion Gap 6, Blood Urea Nitrogen 6, Creatinine 0.59, Estimat Glomerular Filtration Rate 106, BUN/Creatinine Ratio 10, Glucose Level 104, Calcium Level 8.4, Magnesium Level 1.7 Imaging: Reviewed Imaging Films, Reviewed Imaging Report Discharge Home Medications: Active Scripts Active Reported Atorvastatin Calcium 80 Mg Tablet 80 Mg PO DAILY Vitamin D3 (Cholecalciferol (Vitamin D3)) 50 Mcg (2000 Unit) Capsule 50 Mcg PO DAILY Amlodipine Besylate 10 Mg Tablet 10 Mg PO DAILY Hydroxyzine HCl 10 Mg Tablet 10 Mg PO Q8H PRN Clopidogrel (Clopidogrel Bisulfate) 75 Mg Tablet 75 Mg PO DAILY Telmisartan 40 Mg Tablet 40 Mg PO DAILY Instructions to patient/family Please see electronic discharge instructions given to patient. Problem Qualifiers (1) Adverse reaction to SSRI (selective serotonin reuptake inhibitor): Encounter type: initial encounter Qualified Codes: T43.225A - Adverse effect of selective serotonin reuptake inhibitors, initial encounter JAYLIN ROBBINS MD Oct 18, 2021 09:50
[2021-10-18] MEDS ORDERED: ALPR.25T PO ×2 (09:53)
--- NOTE | 2021-10-18 09:56 | Discharge Inst-Simple/Standard ---
Discharge Inst-Standard Patient Instructions/Follow Up Plan of Care/Instructions/FU: Please continue take your medications as written. Please follow-up with your primary care doctor to follow-up this hospital stay. Activity as Tolerated: Yes Discharge Diet: Other Diet (1000ml fluid restriction per day) Return to [facility] For: Chest pain, confusion, shortness of breath, fever, weakness, if you feel you are getting worse. JAYLIN ROBBINS MD Oct 18, 2021 09:56
== END 2021-10-18 11:31 | disposition home or self-care (01) | DRG 641 ==
LOC: EDUNIT# 06:57 → ER 06:58 → ICU 08:09 → 4TH 10-17 12:51
PROVIDERS: ADMIT Internal Medicine; ATTEND Internal Medicine
DX: E87.1 Hypo-osmolality and hyponatremia (principal); E87.6 Hypokalemia; E83.42 Hypomagnesemia; T43.225A Adverse effect of selective serotonin reuptake inhibitors, initial encounter; F41.9 Anxiety disorder, unspecified; I10 Essential (primary) hypertension; I25.10 Atherosclerotic heart disease of native coronary artery without angina pectoris; I73.9 Peripheral vascular disease, unspecified; Z95.5 Presence of coronary angioplasty implant and graft; E78.00 Pure hypercholesterolemia, unspecified; M19.90 Unspecified osteoarthritis, unspecified site; Z79.82 Long term (current) use of aspirin; Z79.899 Other long term (current) drug therapy
CPT/HCPCS: 36415; 71045; 80048; 80053; 82947; 83605; 83690; 83735; 83930; 84100; 84145; 84295; 84443; 84484; 85025; 85027; 93005; 96374